=== PATIENT | female | born 1975 | race Caucasian/White ===

== ENCOUNTER → 2021-09-04 10:27 | Outpatient (BNVA) | payer BC, SELFPAY | PROVIDERS: PCP Physician Assistant Medical; Visit Provider Physician Assistant ==

== ENCOUNTER 2021-09-28 08:01 | Outpatient (REF) | payer BC, SELFPAY ==
--- NOTE | ~2021-09-28 | XR_ITS ---
EXAMINATION: XR CHEST CLINICAL INFORMATION: Morbid obesity due to excess calories COMPARISON: None TECHNIQUE: 2 views of the chest were obtained. FINDINGS: Lungs are clear. No focal consolidation or mass. Normal pulmonary vascularity. No pleural effusion or pneumothorax. Normal heart size. Mild degenerative changes of the thoracic spine. No acute osseous abnormality. XR/XR chest 2V IMPRESSION: No acute pulmonary disease.
--- NOTE | 2021-09-28 08:25 | ECG_ITS ---
Test Reason : obesity Blood Pressure : / mmHG Vent. Rate : 068 BPM Atrial Rate : 068 BPM P-R Int : 154 ms QRS Dur : 090 ms QT Int : 410 ms P-R-T Axes : 014 002 -05 degrees QTc Int : 435 ms Normal sinus rhythm Normal ECG No previous ECGs available Referred By: Gloria Sher Electronically Signed By:PIYUSH OLEARY MD
[2021-09-28 08:39] LABS: MANUAL DIFF FLAG NO
[2021-09-28 08:48] LABS: Basophils Percent Auto 0.5 % (0-2); Eosinophils Absolute Auto 0.1 X10*3/uL (0.0-0.4); Eosinophils Percent Auto 1.1 % (0-4); Hematocrit 39.8 % (37.0-47.0); Hemoglobin 12.7 g/dl (12.0-16.0); Imm Gran Abs Auto 0.02 X10*3/uL (0.00-0.03); Imm Gran Pct Auto 0.2 % (0.0-0.4); Lymphocytes Absolute Auto 1.8 X10*3/uL (1.2-4.9); Lymphocytes Percent Auto 21.8 % (20-40); Mean Corpuscular HGB Conc 31.9 g/dl (31.0-35.0); Mean Corpuscular Hemoglobin 27.9 pg (27.0-33.0); Mean Corpuscular Volume 87.3 fL (80.0-98.0); Mean Platelet Volume 10.1 fL (9.4-12.3); Monocytes Absolute Auto 0.5 X10*3/uL (0.1-1.2); Neutrophils Percent Auto 70.4 % (45-73); Platelet Count 341 X10*3/uL (160-400); Red Blood Count 4.56 X10*6/uL (4.20-5.50); Red Cell Distribution Width 13.9 % (11.0-16.0); White Blood Count 8.5 X10*3/uL (4.8-10.8)
[2021-09-28 09:13] LABS: Estimated Average Glucose 108 mg/dL; Hemoglobin A1c % 5.4 %
[2021-09-28 09:18] LABS: Alanine Aminotransferase 15 U/L (0-31); Albumin Level 4.2 g/dL (3.5-5.0); Alkaline Phosphatase 72 U/L (39-117); Anion Gap 13 (12-20); Aspartate Amino Transferase 14 U/L (5-31); Bilirubin Total 0.4 mg/dL (0.0-1.0); Blood Urea Nitrogen 16 mg/dL (9-16); C Reactive Protein 0.28 mg/dL (< or = 0.50); Calcium 9.6 mg/dL (8.4-10.2); Carbon Dioxide 27 mmol/L (22-29); Chloride 104 mmol/L (96-108); Cholesterol 184 mg/dL; Estimated Glomerular Filt Rate > 60; Glucose Random 99 mg/dL (60-115); HDL Cholesterol 46 mg/dL; Iron 55 mcg/dL (30-160); LDL Cholesterol Calculated 121 mg/dl; Percent Iron Saturation 13 % (15-50); Potassium 3.8 mmol/L (3.3-5.1); Sodium 140 mmol/L (135-145); Total Iron Binding Capacity 412 mcg/dL (228-428); Total Protein 7.7 g/dL (6.5-8.0); Triglycerides 86 mg/dL; Unsaturated Iron Binding 357 ug/dL
[2021-09-28 09:39] LABS: Ferritin 6 ng/mL (10-250); TSH reflex Free T4 1.66 uIU/mL (0.32-4.0); Vitamin D 25-OH Total 18.3 ng/mL (>30)
[2021-09-28 09:54] LABS: Vitamin B12 389 pg/mL (200-900)
[2021-09-28 10:10] LABS: Insulin 11 uU/mL (2-29)
[2021-09-29 15:56] LABS: Calcium (PTHI) 9.5 mg/dL (8.6-10.2); PTHI 61 pg/mL (14-64)
[2021-10-01 01:46] LABS: Zinc 86 mcg/dL (60-130)
[2021-10-02 12:06] LABS: Vitamin B1 <6 nmol/L (8-30)
[2021-10-06 13:25] LABS: Vitamin A 37 mcg/dL (38-98)
== END 2021-09-28 08:02 | disposition home or self-care (01) ==
LOC: HO.XRAY 08:01
PROVIDERS: Absent Provider Physician Assistant; PCP Physician Assistant Medical; Visit Provider Dietitian, Registered
DX: Z01.818 Encounter for other preprocedural examination (principal); E66.01 Morbid (severe) obesity due to excess calories; N20.0 Calculus of kidney; Z71.3 Dietary counseling and surveillance
CPT/HCPCS: 36415; 71046; 80053; 80061; 82306; 82607; 82728; 82746; 83036; 83525; 83540; 83970; 84425; 84443; 84590; 84630; 85025; 86140; 93005; 97802

== ENCOUNTER → 2021-10-12 13:23 | Outpatient (BNVA) | payer BC, SELFPAY | PROVIDERS: PCP Physician Assistant Medical; Visit Provider Physician Assistant ==

== ENCOUNTER 2021-10-20 08:21 | Outpatient (REF) | payer BC, SELFPAY ==
--- NOTE | ~2021-10-20 | US_ITS ---
EXAMINATION: US COMPLETE ABDOMEN WITH LIVER ELASTOGRAPHY CLINICAL INFORMATION: Obesity COMPARISON: None. TECHNIQUE: Real-time imaging of the abdominal viscera. Noninvasive ultrasound liver fibrosis assessment is performed using Yossi ElastPQ point quantification shear wave elastography (pSWE) with a C5-2 MHz transducer. Multiple elastography samples are obtained. FINDINGS: PANCREAS: Normal. ABDOMINAL AORTA: The proximal, middle, and distal aortic segments are normal in caliber. INFERIOR VENA CAVA: Visualized portions are normal. LIVER: Normal. The liver demonstrates normal size, contour and echogenicity. No focal lesion or intrahepatic biliary duct dilatation. The right lobe measures 17 cm in length. The left lobe measures 16 cm in length. Portal flow is normal/hepatopedal Shear wave liver elastography median stiffness is 1.7 m/s (reference: normal median stiffness is 1.3 m/s or less). IQR/median stiffness to assess sampling precision is 0.14 (reference: good quality data set is IQR/median stiffness of 0.15 or less). GALLBLADDER: Surgically removed COMMON BILE DUCT: Normal in caliber measuring 0.7 cm in diameter. RIGHT KIDNEY: Normal. No hydronephrosis. No renal calculi or focal parenchymal lesions. The kidney measures 13 cm in maximum dimension. LEFT KIDNEY: Normal. No hydronephrosis. No renal calculi or focal parenchymal lesions. The kidney measures 12.5 cm in maximum dimension. SPLEEN: Normal. The spleen measures 10 cm in maximum dimension. FREE FLUID: None. US/US abdomen comp w elastography IMPRESSION: 1. Impression: Normal abdominal ultrasound. 2. Liver elastography: Adequate liver sampling. Borderline elevated liver stiffness. REFERENCE: Society of Radiologists in Ultrasound Liver Stiffness Thresholds (2020): LIVER STIFFNESS THRESHOLDS: *Liver Stiffness equal or less than 1.3 m/s: High probability of being normal. *Liver Stiffness less than 1.7 m/s: In the absence of other known clinical signs, rules out compensated advanced chronic liver disease. *Liver Stiffness 1.7-2.1 m/s: Suggestive of compensated advanced chronic liver disease but need further test for confirmation. *Liver Stiffness over 2.1 m/s: Rules in compensated advanced chronic liver disease. *Liver Stiffness over 2.4 m/s: Suggestive of clinically significant portal hypertension. QUALITY OF DATA SET: *IQR/Median value equal or less than 0.15 implies a quality data set. *IQR/Median value over 0.15 implies a poor quality data set. SIGNIFICANT CHANGE FROM PRIOR EXAM: Significant change if liver stiffness measurement is 10% or greater from prior exam. OTHER CONSIDERATIONS: The stage of liver fibrosis may be overestimated in the setting of acute hepatitis, liver inflammation, elevated liver function tests, hepatic vascular congestion, obstructive cholestasis, non-fasting state, and infiltrative diseases such as amyloidosis and lymphoma. In some patients with NAFLD, the liver stiffness thresholds for compensated advanced chronic liver disease may be lower. In causes other than viral hepatitis and NAFLD, liver stiffness thresholds are not well established.
--- NOTE | ~2021-10-20 | FL_ITS ---
EXAMINATION: XR FLUOROSCOPY UPPER GI WITH AIR CLINICAL INFORMATION: Obesity. History of gastric sleeve procedure. COMPARISON: None TECHNIQUE: Upper GI was performed using thin and thick barium and effervescent granules. FINDINGS: Esophageal motility is normal. There is mild gastroesophageal reflux. There is a small sliding-type hiatal hernia. There is question of postsurgical changes to the proximal stomach, the gastric fundus, with slightly abnormal contour related to previous gastric sleeve procedure. The stomach is otherwise normal appearing. No mucosal irregularity, mass, stricture or ulcer is seen. FLUOROSCOPY TIME: 1.5 minutes. DOSE AREA PRODUCT: 21 malone per centimeter squared. 30 saved fluoroscopic images. FL/FL upper GI w air IMPRESSION: There is slight contour irregularity of the proximal stomach, question related to prior gastric sleeve procedure. The stomach is otherwise normal appearing. Small sliding hiatal hernia and mild gastroesophageal reflux.
== END 2021-10-20 08:22 | disposition home or self-care (01) ==
LOC: HO.US 08:21
PROVIDERS: Visit Provider Physician Assistant
DX: Z01.818 Encounter for other preprocedural examination (principal); E66.01 Morbid (severe) obesity due to excess calories; N20.0 Calculus of kidney
CPT/HCPCS: 74246; 76705; 76981

== ENCOUNTER 2021-10-22 10:53 | Outpatient (REF) | payer BC, SELFPAY ==
[2021-10-22 15:35] LABS: H Pylori Breath Test Negative (Negative)
== END 2021-10-22 10:54 | disposition home or self-care (01) ==
LOC: HO.LNP 10:53
PROVIDERS: PCP Physician Assistant Medical; Visit Provider Physician Assistant
DX: Z01.818 Encounter for other preprocedural examination (principal); E66.01 Morbid (severe) obesity due to excess calories; K44.9 Diaphragmatic hernia without obstruction or gangrene; K21.9 Gastro-esophageal reflux disease without esophagitis; I10 Essential (primary) hypertension; N20.0 Calculus of kidney
CPT/HCPCS: 83013

== ENCOUNTER → 2021-11-20 08:02 | Outpatient (BNVA) | payer BC, SELFPAY | PROVIDERS: PCP Physician Assistant Medical; Visit Provider Physician Assistant ==

== ENCOUNTER → 2021-12-18 08:14 | Outpatient (BNVA) | payer BC, SELFPAY | PROVIDERS: PCP Physician Assistant Medical; Visit Provider Physician Assistant ==

== ENCOUNTER → 2022-01-15 08:08 | Outpatient (BNVA) | payer BC, SELFPAY | PROVIDERS: PCP Physician Assistant Medical; Visit Provider Physician Assistant | DX: Z13.89 Encounter for screening for other disorder (principal) ==

== ENCOUNTER 2022-01-21 12:17 | Day surgery (SDC) | payer BC, SELFPAY ==
--- NOTE | 2022-01-20 10:26 | HO.ANESPROP2 ---
Documented by User: Raquel Huitron NP 01/20/22 10:38 HPI - Anesthesia Eval Consult details Narrative: 46yo F for Upper Endoscopy s/p gastric sleeve 2012 PENDING SALE TO [facility] Active Problems Active Problems: All Active Problems (Updated 10/22/21 @ 11:39 by Gloria Sher PA-C) History of sleeve gastrectomy (Acute) Hiatal hernia with gastroesophageal reflux (Acute) AZEB (generalized anxiety disorder) (Acute) Hx of migraines (Acute) GERD (gastroesophageal reflux disease) (Acute) Obstructive sleep apnea (Acute) HTN (hypertension) with goal to be determined (Acute) Pre-op evaluation (Acute) Morbid obesity (Acute) Past Medical History Medical History AZEB (generalized anxiety disorder) GERD (gastroesophageal reflux disease) HTN (hypertension) with goal to be determined Hx of migraines Renal stones Family History Family History Mother Breast cancer FH: mastectomy Hypertension Diabetes Father No problems noted. Brother No problems noted. Brother Heart disease Kidney stones Surgical History Surgical History History of sleeve gastrectomy History of total hysterectomy Hx of cholecystectomy Hx of endoscopy Hx of hand surgery Hx of laparoscopic gastric banding Hx of oral surgery Hx of wisdom tooth extraction Social History Social History Alcohol intake: current Alcohol intake frequency: holidays/special occasions only Patient Tobacco Use Status: Never used Tobacco Meds Allergies Allergy/AdvReac Type Severity Reaction Status Date / Time clindamycin Allergy Severe Anaphylaxis Verified 10/22/21 11:12 erythromycin base Allergy Severe Anaphylaxis Verified 10/22/21 11:12 Penicillins Allergy Severe Anaphylaxis Verified 10/22/21 11:12 Tetanus Vaccines and Toxoid Allergy Severe Anaphylaxis Verified 10/22/21 11:12 levofloxacin [From Levaquin] Allergy Anaphylaxis Verified 10/22/21 11:12 Home Medications Medication Instructions Recorded Confirmed Last Taken Type amlodipine 5 mg tablet 5 mg PO DAILY 09/04/21 01/15/22 Unknown History hydrochlorothiazide 25 mg tablet 25 mg PO DAILY 09/04/21 01/15/22 Unknown History lisinopril 20 mg tablet 20 mg PO DAILY 09/04/21 01/15/22 Unknown History lorazepam 0.5 mg tablet 0.5 mg PO DAILY PRN 09/04/21 01/15/22 Unknown History mecobalamin (vitamin B12) 5,000 5,000 mcg PO DAILY 09/04/21 01/15/22 Unknown History mcg lozenge naratriptan 1 mg tablet 1 mg PO Q4H PRN 09/04/21 01/15/22 Unknown History omeprazole 40 mg capsule,delayed 40 mg PO DAILY 09/04/21 01/15/22 Unknown History release vitamin B6-vitamin E-magnesium tab PO 09/04/21 01/15/22 Unknown History tablet vitamins B1 B6 B12 tablet tab PO 09/04/21 01/15/22 Unknown History Exam Exam Date and Time: January 20, 2022 1026 Pertinent Lab Results Pertinent Lab Results: Laboratory Tests 09/28/21 09/28/21 08:37 08:37 WBC 8.5 Hgb 12.7 Hct 39.8 Plt Count 341 Sodium 140 Potassium 3.8 Chloride 104 Carbon Dioxide 27 BUN 16 Creatinine 0.78 Narrative Narrative: EKG 09/2021 Vent. Rate : 068 BPM ? ? Atrial Rate : 068 BPM ?? P-R Int : 154 ms? QRS Dur : 090 ms ? ? QT Int : 410 ms ? ? ? P-R-T Axes : 014 002 -05 degrees ?? QTc Int : 435 ms ? Normal sinus rhythm Normal ECG No previous ECGs available Assessment and Plan Assessment Anesthesia Assessment: Chart Reviewed Documented by User: Adeel Yañez MD 01/21/22 16:41 PENDING SALE TO [facility] Past Medical History Medical History AZEB (generalized anxiety disorder) GERD (gastroesophageal reflux disease) HTN (hypertension) with goal to be determined Hx of migraines Renal stones Functional capacity: independent ambulation Family History Family History Mother Breast cancer FH: mastectomy Hypertension Diabetes Father No problems noted. Brother No problems noted. Brother Heart disease Kidney stones Family history of problems with anesthesia: No Surgical History Surgical History History of sleeve gastrectomy History of total hysterectomy Hx of cholecystectomy Hx of endoscopy Hx of hand surgery Hx of laparoscopic gastric banding Hx of oral surgery Hx of wisdom tooth extraction History of Problems with Anesthesia: No Social History Social History Alcohol intake: current Alcohol intake frequency: holidays/special occasions only Patient Tobacco Use Status: Never used Tobacco Meds Allergies Allergy/AdvReac Type Severity Reaction Status Date / Time clindamycin Allergy Severe Anaphylaxis Verified 10/22/21 11:12 erythromycin base Allergy Severe Anaphylaxis Verified 10/22/21 11:12 Penicillins Allergy Severe Anaphylaxis Verified 10/22/21 11:12 Tetanus Vaccines and Toxoid Allergy Severe Anaphylaxis Verified 10/22/21 11:12 levofloxacin [From Levaquin] Allergy Anaphylaxis Verified 10/22/21 11:12 Home Medications Medication Instructions Recorded Confirmed Last Taken Type amlodipine 5 mg tablet 5 mg PO DAILY 09/04/21 01/15/22 Unknown History hydrochlorothiazide 25 mg tablet 25 mg PO DAILY 09/04/21 01/15/22 Unknown History lisinopril 20 mg tablet 20 mg PO DAILY 09/04/21 01/15/22 Unknown History lorazepam 0.5 mg tablet 0.5 mg PO DAILY PRN 09/04/21 01/15/22 Unknown History mecobalamin (vitamin B12) 5,000 5,000 mcg PO DAILY 09/04/21 01/15/22 Unknown History mcg lozenge naratriptan 1 mg tablet 1 mg PO Q4H PRN 09/04/21 01/15/22 Unknown History omeprazole 40 mg capsule,delayed 40 mg PO DAILY 09/04/21 01/15/22 Unknown History release vitamin B6-vitamin E-magnesium tab PO 09/04/21 01/15/22 Unknown History tablet vitamins B1 B6 B12 tablet tab PO 09/04/21 01/15/22 Unknown History Exam Airway Mallampati Class: II TM Dist: >3cm Neck ROM: Full Loose/Missing/Broken Teeth: Yes (Crowns ) Heart: rrr Lungs: bl breath sounds Assessment and Plan Assessment Anesthesia Assessment: Anesthesia Plan Discussed Final Anesthetic Review Family History of Problems with Anesthesia: No History of Problems with Anesthesia: No NPO: Yes ASA Class: III Final Preanesthetic Review: Meds/Allgs Chart Reviewed, Consent Obtained/Reviewed and Anes Risks/Benef Reviewed Patient Risk: Intermediate Procedure Risk: Intermediate Anesthetic Plan Anesthetic Plan: MAC: Disposition: Standard PACU
--- NOTE | 2022-01-20 17:46 | MHC.SHP ---
Pre-Procedural Eval Section A Date of Service: 01/20/22 The patient is an INPATIENT: No The History & Physical has been completed within 30 days and I have reviewed it.: Yes Section B Chief Complaint: bariactric surgery status Relevant Family History (Specify if Yes): No Relevant Social History: None Present Medications: None Medical History: No relevant PMH History of Previous Operations: Relevant previous surgery/procedure and date(s) (Lap band and band revision to sleeve gastrectomy) Allergies: Allergies Allergy/AdvReac Type Severity Reaction Status Date / Time clindamycin Allergy Severe Anaphylaxis Verified 10/22/21 11:12 erythromycin base Allergy Severe Anaphylaxis Verified 10/22/21 11:12 Penicillins Allergy Severe Anaphylaxis Verified 10/22/21 11:12 Tetanus Vaccines and Toxoid Allergy Severe Anaphylaxis Verified 10/22/21 11:12 levofloxacin [From Levaquin] Allergy Anaphylaxis Verified 10/22/21 11:12 Review of Systems Sugical H&P ROS: Negative: Constitution, Cardiovascular, Respiratory, Neurological, Psychiatric, Hem-Onc, Allergic/Immunologic, Gastrointestinal, Genitourinary, Musculoskeletal, Integumentary, Endocrine and Eyes/Ears/Nose/Throat Plan Diagnosis/Plan: Unchanged (EGD to assess the anatomy of the stomach due to previous extensive surgical history and for GERD. Risks of bleeding and perforation were discussed.) I have reviewed the history and physical and performed a pertinent physical examination on my patient. No changes have occurred unless specified.
[2022-01-21 12:52] VITALS: BMI 43.6
[2022-01-21 13:10] VITALS: BP 126/80; PULSE 69; RESP 16; TEMP 37; O2SAT 98
[2022-01-21] MEDS: Lactated Ringers 1,000 ML 100 ML IVCONT (13:21)
--- NOTE | 2022-01-21 13:50 | PM.OP ---
Brief Operative Note Date of Service: 01/21/22 Pre-op diagnosis: GERD, s/p lap band and sleeve gastrectomy Post-op diagnosis: same Procedure: PROCEDURE DATE: 01/21/2022 PREOPERATIVE DIAGNOSIS: GERD, s/p sleeve gastrectomy POSTOPERATIVE DIAGNOSIS: ?Same as above. 1) small hiatal hernia, 2) grade I esophagitis, 3) retained gastric fundus PROCEDURE: [id number] with biopsies Surgeon: ?Eddie Knapp M.D.. Ph.D. Rental Sales Representative: None ? Anesthesia: IV sedation Estimated blood loss: ?Minimal FINDINGS AND PROCEDURE: ? OPERATIVE INDICATIONS: ?The patient is a 46 year old female known to me who underwent initially a lap band procedure followed by a revision to a laparoscopic sleeve gastrectomy at [facility]. The patient had inadequate weight loss so far..? The patient has been complaining of GERD. Based on this information I recommended an upper endoscopy to evaluate the patient's symptoms. Risks and complications of the surgery were discussed with the patient in advance particularly the possibility of perforation or bleeding that may require surgical intervention. The patient understood the risks and was in agreement with the plan. ? PROCEDURE: After informed consent was obtained by the patient, the patient was ?transferred to the Operating Room and was placed in the supine position.? After successful induction of IV sedation, a mouth block was inserted and the patient was placed in the left lateral decubitus position. An upper endoscopy was performed next, the oropharynx and esophagus appeared within the normal limits. There was a small hiatal hernia. The z-line was irregular with tongues of gastric mucosa protruding into the esophagus in less than 25% circumference.. Two biopsies were obtained from the distal esohagus 2-3 cm proximal to the GE junction and two additional biopsies from the GE junction. The sleeve was entered. There proximal fundus was not completely resected creating a redundant pouch near the GE junction. There was no gastritis.. There was no stricture or ulcer. The caliber of the remaining sleeve was normal. Distal resection margin was incomplete leaving a large antrum. Biopsies were obtained from the proximal sleeve as well as the distal antrum. No significant bleeding was noted from any of the biopsy sites. The scope was then advanced into the duodenum which appeared to be normal as well. At that point the duodenum ?and the sleeve were decompressed and the scope was withdrawn from the patient's mouth. The patient extubated and was transferred in stable condition to the Recovery Room for further care. I was present and performed all steps of the procedure. There were no residents to assist with this case. Eddie Knapp M.D., Ph.D. Surgeon: Ervin Knapp MD Anesthesia: MAC Was an Rental Sales Representative used for this Procedure?: No Estimated blood loss (mL): 0 IV fluids (mL): 400 Urine output (mL): 0 (No Kahn to record) Pathology: other (GE junction x2, distal esophagus x2, proximal sleeve x1, antrum x1) Condition: stable Disposition: PACU
[2022-01-21 14:17] VITALS: BP 120/72; PULSE 77; RESP 16; TEMP 36.2; O2SAT 96
[2022-01-21 14:32] VITALS: BP 121/81; PULSE 67; RESP 18; TEMP 36.7; O2SAT 98
== END 2022-01-21 15:09 | disposition home or self-care (01) ==
PROVIDERS: PCP Physician Assistant Medical; Visit Provider Surgery
PROC: 0DJ08ZZ Inspection of Upper Intestinal Tract, Via Natural or Artificial Opening Endoscopic (ICD-10-PCS; CPT 43235; principal; 2022-01-21 13:20)
DX: K21.9 Gastro-esophageal reflux disease without esophagitis (principal); K20.80 Other esophagitis without bleeding; K44.9 Diaphragmatic hernia without obstruction or gangrene; K31.89 Other diseases of stomach and duodenum; Z98.84 Bariatric surgery status; Z90.3 Acquired absence of stomach [part of]; E66.01 Morbid (severe) obesity due to excess calories; Z68.41 Body mass index [BMI] 40.0-44.9, adult; I10 Essential (primary) hypertension; F41.1 Generalized anxiety disorder; Z79.899 Other long term (current) drug therapy; Z88.0 Allergy status to penicillin; Z88.1 Allergy status to other antibiotic agents; Z88.7 Allergy status to serum and vaccine; Z90.49 Acquired absence of other specified parts of digestive tract; Z87.442 Personal history of urinary calculi; Z98.890 Other specified postprocedural states; Z86.16 Personal history of COVID-19; Z87.891 Personal history of nicotine dependence
CPT/HCPCS: 43239; 88305; 88342

== ENCOUNTER → 2022-01-29 08:06 | Outpatient (BNVA) | payer BC, SELFPAY | PROVIDERS: PCP Physician Assistant Medical; Visit Provider Physician Assistant | DX: Z13.89 Encounter for screening for other disorder (principal) ==

== ENCOUNTER → 2022-02-22 09:04 | Outpatient (BNVA) | payer BC, SELFPAY | PROVIDERS: PCP Physician Assistant Medical; Visit Provider Surgery | DX: Z13.89 Encounter for screening for other disorder (principal) ==

== ENCOUNTER → 2022-03-01 09:30 | Outpatient (BNVA) | payer BC, SELFPAY | PROVIDERS: PCP Physician Assistant Medical; Visit Provider Surgery | DX: E66.01 Morbid (severe) obesity due to excess calories (principal) ==

== ENCOUNTER → 2022-03-19 08:16 | Outpatient (BNVA) | payer BC, SELFPAY | PROVIDERS: PCP Physician Assistant Medical; Visit Provider Surgery | DX: Z13.89 Encounter for screening for other disorder (principal) ==

== ENCOUNTER 2022-03-24 08:05 | Inpatient (IN) | payer BC, SELFPAY ==
[2022-03-20 10:15] LABS: MANUAL DIFF FLAG NO
[2022-03-20 10:49] LABS: Basophils Percent Auto 0.4 % (0-2); Eosinophils Absolute Auto 0.1 X10*3/uL (0.0-0.4); Hematocrit 40.5 % (37.0-47.0); Hemoglobin 13.4 g/dl (12.0-16.0); Imm Gran Abs Auto 0.03 X10*3/uL (0.00-0.03); Imm Gran Pct Auto 0.4 % (0.0-0.4); Mean Corpuscular HGB Conc 33.1 g/dl (31.0-35.0); Mean Corpuscular Hemoglobin 29.1 pg (27.0-33.0); Mean Corpuscular Volume 87.9 fL (80.0-98.0); Mean Platelet Volume 10.4 fL (9.4-12.3); Monocytes Absolute Auto 0.5 X10*3/uL (0.1-1.2); Monocytes Percent Auto 6.2 % (2-11); Neutrophils Absolute Auto 5.7 x10*3/uL (2.0-8.3); Platelet Count 327 X10*3/uL (160-400); Red Blood Count 4.61 X10*6/uL (4.20-5.50); White Blood Count 8.4 X10*3/uL (4.8-10.8)
[2022-03-20 10:56] LABS: Estimated Average Glucose 105 mg/dL; Hemoglobin A1c % 5.3 %
[2022-03-20 10:59] LABS: Prothrombin Time 11.9 SEC (9.9-13.0)
[2022-03-20 11:01] LABS: Partial Thromboplastin Time 32.5 SEC (24.1-38.0)
[2022-03-20 11:26] LABS: Alanine Aminotransferase 12 U/L (0-31); Albumin Level 4.1 g/dL (3.5-5.0); Alkaline Phosphatase 77 U/L (39-117); Anion Gap 17 (12-20); Aspartate Amino Transferase 12 U/L (5-31); Bilirubin Total 0.8 mg/dL (0.0-1.0); Blood Urea Nitrogen 15 mg/dL (9-16); Calcium 9.7 mg/dL (8.4-10.2); Carbon Dioxide 26 mmol/L (22-29); Chloride 102 mmol/L (96-108); Cholesterol 217 mg/dL; Estimated Glomerular Filt Rate > 60; Glucose Random 93 mg/dL (60-115); HDL Cholesterol 51 mg/dL; LDL Cholesterol Calculated 151 mg/dl; Potassium 4.7 mmol/L (3.3-5.1); Sodium 140 mmol/L (135-145); Total Protein 7.5 g/dL (6.5-8.0); Triglycerides 76 mg/dL
[2022-03-20 11:48] LABS: Insulin 13 uU/mL (2-29); TSH reflex Free T4 1.74 uIU/mL (0.32-4.0)
--- NOTE | 2022-03-20 13:29 | MHC.SHP ---
Pre-Procedural Eval Section A Date of Service: 03/20/22 The patient is an INPATIENT: Yes The History & Physical has been completed within 30 days and I have reviewed it.: Yes Section B Chief Complaint: obesity Relevant Family History (Specify if Yes): No Relevant Social History: None Present Medications: None Medical History: No relevant PMH History of Previous Operations: Relevant previous surgery/procedure and date(s) (Lap band, sleeve gastrectomy) Allergies: Allergies Allergy/AdvReac Type Severity Reaction Status Date / Time clindamycin Allergy Severe Anaphylaxis Verified 03/01/22 10:39 erythromycin base Allergy Severe Anaphylaxis Verified 03/01/22 10:39 Penicillins Allergy Severe Anaphylaxis Verified 03/01/22 10:39 Tetanus Vaccines and Toxoid Allergy Severe Anaphylaxis Verified 03/01/22 10:39 levofloxacin [From Levaquin] Allergy Anaphylaxis Verified 03/01/22 10:39 Review of Systems Sugical H&P ROS: Negative: Constitution, Cardiovascular, Respiratory, Neurological, Psychiatric, Hem-Onc, Allergic/Immunologic, Gastrointestinal, Genitourinary, Musculoskeletal, Integumentary, Endocrine and Eyes/Ears/Nose/Throat Exam Surgical H&P Exam: Normal: HEENT, Normal: Heart, Normal: Lungs, Normal: Extremities, Normal: Abdomen, Normal: Skin and Normal: Neurological Plan Diagnosis/Plan: Unchanged I have reviewed the history and physical and performed a pertinent physical examination on my patient. No changes have occurred unless specified.
[2022-03-22 11:34] VITALS: BMI 41.1
--- NOTE | 2022-03-23 10:26 | P.CONAN_ITS ---
Documented by User: Raquel Huitron NP 03/23/22 10:27 HPI - Anesthesia Eval Consult details Narrative: 46yo F for Gastric Sleeve to Gastric Sleeve or Bypass Conversion,EGD,Poss diaphragmatic hernia,Poss ventral hernia,Poss open s/p EGD 01/2022 with TIVA PMFSH Active Problems Active Problems: All Active Problems (Updated 03/01/22 @ 10:14 by Ervin Knapp MD) Morbid obesity (Acute) Pre-op evaluation (Acute) Obstructive sleep apnea (Acute) Hiatal hernia with gastroesophageal reflux (Acute) Iron deficiency (Acute) History of sleeve gastrectomy (Acute) Past Medical History Medical History AZEB (generalized anxiety disorder) GERD (gastroesophageal reflux disease) HTN (hypertension) with goal to be determined Hx of migraines Renal stones Family History Family History Mother Breast cancer FH: mastectomy Hypertension Diabetes Father No problems noted. Brother No problems noted. Brother Heart disease Kidney stones Family history of problems with anesthesia: No Surgical History Surgical History History of partial hysterectomy History of sleeve gastrectomy Hx of cholecystectomy Hx of endoscopy Hx of hand surgery Hx of laparoscopic gastric banding Hx of oral surgery Hx of wisdom tooth extraction History of Problems with Anesthesia: No Social History Social History Are you a primary anesthesiologist and critical care to a significant other at home: Yes Do you presently have visiting nurse or other home services: No Alcohol intake: current Alcohol intake frequency: does not drink Patient Tobacco Use Status: Former Tobacco user Quit Date: 1999 Tobacco use type: Cigarette Use of substances other than those prescribed or required for medical reasons: No Have you been hit, kicked, punched, or otherwise hurt by someone within the past year? If so, by whom?: No Are you DNR?: No Advance Directives: No Advance Directives Information Provided: Yes Advance Directives on File: No Recently lost weight without trying: No Patient : No (partial hysterectomy 2019) Meds Allergies Allergy/AdvReac Type Severity Reaction Status Date / Time erythromycin base Allergy Severe Vomiting Verified 03/24/22 08:15 levofloxacin [From Levaquin] Allergy Severe Hives Verified 03/24/22 08:15 Penicillins Allergy Severe Hives Verified 03/24/22 08:15 Tetanus Vaccines and Toxoid Allergy Severe Swelling Verified 03/24/22 08:15 at site, [facility] Home Medications Medication Instructions Recorded Confirmed Last Taken Type amlodipine 5 mg tablet 5 mg PO DAILY 09/04/21 03/22/22 03/24/22 06:30 History hydrochlorothiazide 25 mg tablet 25 mg PO DAILY 09/04/21 03/22/22 Unknown History lisinopril 20 mg tablet 20 mg PO DAILY 09/04/21 03/22/22 03/24/22 06:30 History mecobalamin (vitamin B12) 5,000 5,000 mcg PO DAILY 09/04/21 03/19/22 Unknown History mcg lozenge naratriptan 1 mg tablet 1 mg PO Q4H PRN 09/04/21 03/19/22 Unknown History omeprazole 40 mg capsule,delayed 40 mg PO DAILY 09/04/21 03/22/22 Unknown History release vitamin B6-vitamin E-magnesium tab PO 09/04/21 03/19/22 Unknown History tablet vitamins B1 B6 B12 tablet tab PO 09/04/21 03/19/22 Unknown History Exam Exam Date and Time: March 23, 2022 1026 Height,Weight and Vital Signs: Height 5 ft 5.5 in Weight 113.852 kg Pertinent Lab Results Pertinent Lab Results: Laboratory Tests 03/20/22 03/20/22 03/20/22 10:10 10:10 10:10 WBC 8.4 RBC 4.61 Hgb 13.4 Hct 40.5 MCV 87.9 MCH 29.1 MCHC 33.1 RDW 14.0 Plt Count 327 MPV 10.4 Immature Gran % (Auto) 0.4 Neut % (Auto) 68.0 Lymph % (Auto) 24.0 Ida % (Auto) 6.2 Eos % (Auto) 1.0 Baso % (Auto) 0.4 Lymph # (Auto) 2.0 Ida # (Auto) 0.5 Eos # (Auto) 0.1 Baso # (Auto) 0.0 Abs Immat Gran (auto) 0.03 Absolute Neuts (auto) 5.7 Absolute Nucleated RBC 0.000 Nucleated RBC % (auto) 0.0 PT 11.9 INR 1.0 APTT 32.5 Sodium 140 Potassium 4.7 D Chloride 102 Carbon Dioxide 26 Anion Gap 17 BUN 15 Creatinine 0.80 Estim Creat Clear Calc TNP Estimated GFR > 60 Random Glucose 93 Estimat Average Glucose Hemoglobin A1c % Insulin Level 13 Calcium 9.7 Total Bilirubin 0.8 AST 12 ALT 12 Alkaline Phosphatase 77 C-Reactive Protein 0.20 Total Protein 7.5 Albumin 4.1 Triglycerides 76 Cholesterol 217 LDL Cholesterol, Calc 151 HDL Cholesterol 51 TSH 1.74 Blood Type Antibody Screen 03/20/22 03/20/22 10:10 10:10 WBC RBC Hgb Hct MCV MCH MCHC RDW Plt Count MPV Immature Gran % (Auto) Neut % (Auto) Lymph % (Auto) Ida % (Auto) Eos % (Auto) Baso % (Auto) Lymph # (Auto) Ida # (Auto) Eos # (Auto) Baso # (Auto) Abs Immat Gran (auto) Absolute Neuts (auto) Absolute Nucleated RBC Nucleated RBC % (auto) PT INR APTT Sodium Potassium Chloride Carbon Dioxide Anion Gap BUN Creatinine Estim Creat Clear Calc Estimated GFR Random Glucose Estimat Average Glucose 105 Hemoglobin A1c % 5.3 Insulin Level Calcium Total Bilirubin AST ALT Alkaline Phosphatase C-Reactive Protein Total Protein Albumin Triglycerides Cholesterol LDL Cholesterol, Calc HDL Cholesterol TSH Blood Type AB Positive Antibody Screen NEGATIVE Narrative Narrative: EKG 09/2021 Vent. Rate : 068 BPM ? ? Atrial Rate : 068 BPM ?? P-R Int : 154 ms? QRS Dur : 090 ms ? ? QT Int : 410 ms ? ? ? P-R-T Axes : 014 002 -05 degrees ?? QTc Int : 435 ms ? Normal sinus rhythm Normal ECG No previous ECGs available Assessment and Plan Assessment Anesthesia Assessment: Chart Reviewed Final Anesthetic Review Family History of Problems with Anesthesia: No History of Problems with Anesthesia: No Documented by User: Herbert Ansari MD 03/24/22 08:56 [facility] Past Medical History Medical History AZEB (generalized anxiety disorder) GERD (gastroesophageal reflux disease) HTN (hypertension) with goal to be determined Hx of migraines Renal stones Family History Family History Mother Breast cancer FH: mastectomy Hypertension Diabetes Father No problems noted. Brother No problems noted. Brother Heart disease Kidney stones Surgical History Surgical History History of partial hysterectomy History of sleeve gastrectomy Hx of cholecystectomy Hx of endoscopy Hx of hand surgery Hx of laparoscopic gastric banding Hx of oral surgery Hx of wisdom tooth extraction Social History Social History Are you a primary anesthesiologist and critical care to a significant other at home: Yes Do you presently have visiting nurse or other home services: No Alcohol intake: current Alcohol intake frequency: does not drink Patient Tobacco Use Status: Former Tobacco user Quit Date: 1999 Tobacco use type: Cigarette Use of substances other than those prescribed or required for medical reasons: No Have you been hit, kicked, punched, or otherwise hurt by someone within the past year? If so, by whom?: No Are you DNR?: No Advance Directives: No Advance Directives Information Provided: Yes Advance Directives on File: No Recently lost weight without trying: No Patient : No (partial hysterectomy 2019) Meds Allergies Allergy/AdvReac Type Severity Reaction Status Date / Time erythromycin base Allergy Severe Vomiting Verified 03/24/22 08:15 levofloxacin [From Levaquin] Allergy Severe Hives Verified 03/24/22 08:15 Penicillins Allergy Severe Hives Verified 03/24/22 08:15 Tetanus Vaccines and Toxoid Allergy Severe Swelling Verified 03/24/22 08:15 at site, [facility] Home Medications Medication Instructions Recorded Confirmed Last Taken Type amlodipine 5 mg tablet 5 mg PO DAILY 09/04/21 03/22/22 03/24/22 06:30 History hydrochlorothiazide 25 mg tablet 25 mg PO DAILY 09/04/21 03/22/22 Unknown History lisinopril 20 mg tablet 20 mg PO DAILY 09/04/21 03/22/22 03/24/22 06:30 History mecobalamin (vitamin B12) 5,000 5,000 mcg PO DAILY 09/04/21 03/19/22 Unknown History mcg lozenge naratriptan 1 mg tablet 1 mg PO Q4H PRN 09/04/21 03/19/22 Unknown History omeprazole 40 mg capsule,delayed 40 mg PO DAILY 09/04/21 03/22/22 Unknown History release vitamin B6-vitamin E-magnesium tab PO 09/04/21 03/19/22 Unknown History tablet vitamins B1 B6 B12 tablet tab PO 09/04/21 03/19/22 Unknown History Exam Airway Mallampati Class: III TM Dist: >3cm Neck ROM: Full Assessment and Plan Assessment Anesthesia Assessment: Anesthesia Plan Discussed Final Anesthetic Review NPO: Yes ASA Class: III Final Preanesthetic Review: No Changes in Pt Med Stat, Meds/Allgs Chart Reviewed, Consent Obtained/Reviewed and Anes Risks/Benef Reviewed Patient Risk: Intermediate Procedure Risk: Intermediate Anesthetic Plan Anesthetic Plan: GA Disposition: Inp. Admit - Standard Bed
[2022-03-23 14:02] LABS: COVID-19 Test Negative (Negative)
[2022-03-24] VITALS (12 sets, daily range): BP systolic 105–138; BP diastolic 68–92; PULSE 75–99; RESP 15–18; TEMP 35.9–36.9; O2SAT 95–100
[2022-03-24] MEDS: Lactated Ringers 1,000 ML 999 ML IV (08:39)
[2022-03-24] MEDS: Lactated Ringers 1,000 ML 100 ML IVCONT (08:40)
--- NOTE | 2022-03-24 11:25 | PM.OP ---
Brief Operative Note Date of Service: 03/24/22 Pre-op diagnosis: Morbid obesity and comorbidities (see below) Post-op diagnosis: same (diaphragmatic hernia & abdominal adhesions) Procedure: INITIAL PATIENT BMI ON PRESENTATION AT OUR OFFICE: 49.9 kg/m2 LAST BMI BEFORE SURGERY: 42.8 kg/m2 COMORBIDITIES: Sleep apnea on CPAP, hypertension, GERD, diaphragmatic hernia, anxiety, migraines, liver fibrosis ?The patient presented to the Weight Management Program with significant obesity that was negatively impacting the patient's comorbidities as listed above.? The program is a phased program with a special focus on preoperative medical weight management to promote substantial weight loss and prepare the patients for the second phase of the program: bariatric surgery. The patient participated in an intensive weekly lifestyle ?intervention and exercise program during which the patient ?has lost between the initial office visit and the last preoperative visit 47.8lbs, or 15.68% of initial actual body weight. It was deemed appropriate for the patient to now have bariatric surgery. In light of the current Covid-19 pandemic and the well documented strong association of obesity and increased risk of worse outcomes if infected with Covid-19 (REFERENCES:https://pubmed.ncbi.nlm.nih.gov/63763281/,?https://pubmed.ncbi.nlm.nih.gov/90694283/), any delay in undergoing bariatric surgery may lead to the patient's worsening health condition and increased?risk of more severe Covid-19 disease if infected. In addition a recent?study from [facility] published in [employer] on 10/12/2021 ([email or web address]) found that, among patients with obesity, substantial weight loss achieved with surgery was associated with improved outcomes of COVID-19 infection. The findings suggest that obesity can be a modifiable risk factor for the severity of COVID-19 infection. In addition, the patient met the BMI-criteria for bariatric surgery based on the BMI on initial presentation. The patient should not be penalized for achieving such weight loss because ?it is not sustainable long-term without surgical intervention and it was achieved in preparation for bariatric surgery ?under my direction and based on my published research ([email or web address] and?[email or web address].soard.org/[email or web address]/pdf) ?that a 10% preoperative weight loss improves long-term weight loss after surgery and reduces perioperative complications.? Insurance carriers such as [facility] have endorsed my recommendations ?and have included in their policies criteria to include a 10% preoperative weight loss requirement. PROCEDURE: Esophago-gastroscopy, laparoscopic repair of incarcerated diaphragmatic hernia, laparoscopic lysis of adhesions, laparoscopic sleeve gastrectomy and laparoscopic gastropexy INDICATIONS: This is a 46 year-old female who was electively scheduled for laparoscopic, possibly open sleeve gastrectomy revision. The patient has a previous lap band in 2009, followed by a revision to sleeve gastrectomy, both of which were performed by Dr. Cunningham. Preoperative work-up including an UGI and EGD is suggestive of a large proximal pouch of retained gastric fundus as well as incomplete distal antral resection. The objective of this operation is to redo the sleeve, or as an alternative to revise to Tasha-en-Y gastric bypass. The risks and complications of the procedure were discussed with the patient in advance, particularly the possibility of ; pulmonary embolism; staple line leak; bleeding; GERD; cardiac, pulmonary, or renal complications; as well as long-term problems such as insufficient weight loss, vitamin deficiency, strictures, or ulcers. The patient understood all the risks, and was in agreement to proceed with surgery. DESCRIPTION OF PROCEDURE: After informed consent was obtained from the patient, the patient was given preoperative antibiotics, and was transferred to the operating room. After successful induction of general anesthesia, a Kahn cather and pneumatic compression devices were placed on both lower extremities. An upper endoscopy was performed next. The oropharynx and esophagus appeared to be within normal limits. There was a diaphragmatic hernia present of moderate size consistent with the findings of the preoperative upper GI. The stomach was entered. Then after all fluid and air were suctioned and the stomach was fully decompressed, the scope was withdrawn and secured in the mid esophagus. The patient was then prepped and draped in the usual sterile manner, and abdominal access was established at the right upper quadrant with the Tunde technique. A 12 mm blunt port was inserted, and the abdomen was insufflated with CO2 to a pressure of 15 mmHg. Under direct visualization, additional ports were placed, specifically two 5 mm Versi-step ports to the left upper quadrant, and a 5 mm Versi-Step port to the right upper quadrant. 1% lidocaine plain was used to infiltrate all port sites as well as all fascia defects. There were adhesions in the abdomen from previous gastric band and sleeve gastrectomy involving the left lobe of the liver and the anterior surface of the stomach.. Those were lysed completely with the ultrasonic device. Following that, the patient was placed in a steep reverse Trendelenburg position. An additional 5 mm port was placed to the right flank for the Mediflex retractor that was used to retract the left lobe of the liver. The gastro-esophageal fat pad was opened with the ultrasonic device (SnapShot GmbHerbeat, Olympus) and the anterior esophagus and hiatus were exposed. The angle of His was opened with the ultrasonic device the fundus of the stomach from any diaphragmatic and splenic attachments. I then opened the gastrocolic ligament between the transverse colon and the greater curvature of the stomach with the ultrasonic device to enter the lesser sac. This was very difficult as there were dense adhesions from previous sleeve gastrectomy. The posterior gastric wall was attached to the pancreas and extensive and tedious dissection was required to free the stomach. The dissection continued all the way to the angle of His until the left jewels was completely dissected at its entirety. The previous surgeon did not dissect adequately posterior leaving short gastric vessels? which resulted in a much larger proximal stomach which was confirmed by preoperative UGI and EGD. These posterior short gastric vessels were ligated as well as other posterior attachments that were not divided originally. This allowed us to mobilize the stomach completely and appreciate the amount of stomach that was inappropriately left unresected at the original operation.? In addition the remaining sleeve all the way to the incisura angularis was enlarged. Adhesiolysis took approximately 120 min to complete with a total operative time of 4 hours. There was also an obvious significant-sized hiatal hernia. I continued dissecting along the hiatus toward the left jewels and the angle of His. I fully mobilized the fat pad that was incarcerated in the hernia. I then continued by dissecting even further into the posterior retro-esophageal space all the way to the angle of His. I continued to mobilize the esophagus into the mediastinum circumferentially. Both vagal nerves were seen and preserved. At that point, I was able to have at least 3 to 5 cm of esophagus into the abdomen.? After I completely mobilized the esophagus from both the left and right jewels and I had a good mobilization of the esophagus circumferentially, I closed the hernia defect with two interrupted #0 Surgidac sutures using the Endo Stitch device, one of which was placed posterior and one of which anterior to the esophagus. ? The redundant stomach was then resected from the incisura angularis to the angle of His with seven Endo CODIE-45 purple loads using the AEON stapler and loads under direct endoscopic visualization before each of the seven staple loads were fired. This was quite cumbersome and the assistance of Dr. Murillo was requested who was kind enough to perform the intraoperative endoscopy while I was resecting the stomach to ensure proper resection without causing further redundancy or stenosis. Every effort was made that the gastric sleeve had a tubular shape and an even caliber throughout. Once the sleeve resection was completed, the staple line of the gastric sleeve was reinforced with Hemoclips. The resected stomach was retrieved without difficulty from the Tunde port. A gastropexy was then performed in order to prevent postoperative GERD and partial gastric volvulus. Several interrupted 2.0 Surgidac sutures were placed between the sleeve's staple line and the previously divided greater omentum and gastro-colic ligament using the Endo-Stitch device. ?An upper endoscopy was performed. There was no narrowing at the GE junction. The scope was easily advanced all the way to the pylorus which was clearly visualized. There was no narrowing anywhere and the sleeve's caliber was even throughout. The sleeve's staple line was inspected and there was no evidence of ischemia, bleeding or dehiscence. At that point the gastroscope was withdrawn from the patient?s mouth while we were decompressing the bowel and the stomach from any remaining air. I looked into the lesser sac to see how the sleeve was situating and it was situating well. There was no bleeding from the staple line, spleen, or short gastric vessels. The Mediflex retractor was removed, and the undersurface of the liver was inspected and there was no bleeding. The patient was placed in supine position. I closed the fascial defect of the 12 mm port site with a figure of eight #1 Polysorb suture. Then 100 cc 0.25 % Marcaine plain with 10 mg of Dexamethasone were used to infiltrate the fascial closure as well as all skin incisions. 7 ml of Zynrelef was used at the Tunde port site. At this point, the abdomen was deflated, all ports were removed under direct vision, and no bleeding was noted from any of the port sites. The skin incisions were irrigated with saline and were closed with 4-0 absorbable monofilament sutures. Steri-Strips and OpSites were used to cover all incisions. The patient was extubated and was transferred in stable condition to the recovery room for further care. I was present and performed all mena parts of the procedure. Ms. Sher was the first aid teacher. There were no residents to assist with this case. Eddie Knapp MD, PhD, FACS Surgeon: Ervin Knapp MD Anesthesia: GETA, local and other (TAP block & 7ml of Zynrelef) Was an Jordan Worker used for this Procedure?: Yes Jordan Worker: Gloria Sher Estimated blood loss (mL): 10 IV fluids (mL): 3,800 Urine output (mL): 150 Pathology: other Condition: stable Disposition: PACU
--- NOTE | 2022-03-24 11:29 | PM.PNGS ---
Subjective Subjective Date of Service: 03/25/22 Interval history: Patient has mild incisional pain, but was able to ambulate and use the incentive spirometer. She is tolerating phase 1 bariatric diet Physical Exam Vital Signs: Vital Signs: Last Vital Signs Temp 97.8 F 03/24/22 08:16 Pulse 75 03/24/22 08:16 Resp 15 03/24/22 08:16 BP 128/77 03/24/22 08:16 Pulse Ox 96 03/24/22 08:16 O2 Del Method 03/24/22 08:16 BMI result Body Mass Index 41.1 GI: Inspection: Yes normal to inspection, Yes incision (clean, dry and intact) and Yes obesity Extrem: Right lower extremity: normal to inspection (no calf tenderness) Left lower extremity: normal to inspection (no calf tenderness) Objective Data Active Medications Fentanyl (Fentanyl Citrate/Pf 100 Mcg/2 Ml Vial) 50 mcg IVPUSH Q5M PRN; Protocol PRN Reason: Pain, Severe (Pain Scale 7-10) Lactated Ringer's (Lr) 1,000 mls @ 100 mls/hr IVCONT .Q10H MARYSOL Last Admin: 03/24/22 08:40 Dose: 100 mls/hr Documented By: ANTHONY Ondansetron HCl (Ondansetron Hcl 4 Mg/2 Ml Vial) 4 mg IVPUSH ONCE PRN PRN Reason: Nausea and Vomiting Oxycodone HCl (Oxycodone Hcl Immed Release 5 Mg Tablet) 10 mg PO ONCE PRN PRN Reason: Pain, Severe (Pain Scale 7-10) Labs CBC & Chem 7: 03/25/22 06:00 03/25/22 06:00 Labs: Laboratory Results - last 24 hr 03/23/22 13:20 COVID-19 (ELIER) Negative COVID-19 Clin Com See Note Procedures Date of Service Date of Service: 03/25/22 Progress Note: A&P Assessment and plan (1) Morbid obesity: Status: Acute Assessment and Plan: s/p laparoscopic sleeve gastrectomy, lysis of adhesions repair of diaphragmatic hernia, and gastropexy Doing well Check am labs. If OK, will discharge home? (2) Hiatal hernia with gastroesophageal reflux: Status: Acute (3) History of sleeve gastrectomy: Status: Acute (4) Obstructive sleep apnea: Status: Acute (5) HTN (hypertension) with goal to be determined: Status: Acute (6) Liver fibrosis: Status: Acute (7) AZEB (generalized anxiety disorder): Status: Acute (8) Hx of migraines: Status: Acute (9) S/P laparoscopic sleeve gastrectomy: Status: Acute (10) History of repair of hiatal hernia: Status: Acute Time Spent With Patient Time: Total time spent is greater than 50% in coordination of care (as documented) at patient's floor/unit and/or counseling patient: Quality Stroke Does the patient have a stroke diagnosis?: No VTE Prior VTE?: No VTE Risk Level:: Surgical - moderate VTE Device Contraindication: N/A - Device Ordered VTE Drug Contraindication: Treatment Not Indicated
--- NOTE | 2022-03-24 16:19 | W.PM.OPN ---
Operative Note Operative Note Date of Service: 03/24/22 Narrative: Preop diagnosis: failed sleeve gastrectomy, planned revision Postop diagnosis: same Procedure: Intraoperative esophagogastrostomy Surgeon: Germán Murillo MD Requested by Ervin Knapp MD Anesthesia: GET Estimated blood loss: None Specimen: none Intraoperative findings: Viable gastric mucosa, appropriate caliber revision sleeve gastrectomy and intraoperative hiatal hernia repair; see Dr. Knapp' operative report for full details Indications: The patient is a 46-year-old woman who is status post lap band with subsequent removal and sleeve gastrectomy at an outside hospital who developed a hiatal hernia and failed sleeve gastrectomy as evidence by weight gain. Dr. Knapp requested I assist intraoperatively by performing intraoperative upper endoscopy as part of the patient's revision sleeve gastrectomy which would allow concomitant endoscopic visualization of the revision sleeve gastrectomy diameter during the laparoscopic procedure, it is morphology and confirm efficacy of the procedure including hiatal hernia repair. Please see Dr. Knapp' op note for additional details. Procedure: The patient was identified and an appropriate time-out performed. Following induction of general endotracheal anesthesia, a Kahn catheter was placed, her abdomen widely prepped and draped and antibiotics administered per protocol. Her operative procedure was performed by Dr. Knapp; please see his separate dictation for details of his report. During his laparoscopy, I was asked to assist by performing esophagogastroscopy while he performed laparoscopy gastric sleeve revision and hiatal hernia repair. The Olympus 160 gastroscope was advanced from the esophagus under direct vision into the stomach to the pylorus. Intra procedure photographs are obtained. Under the direction of Dr. Knapp, the scope was advanced and withdrawn to facilitate revision sleeve gastrectomy and hiatal hernia repair. At the completion of the procedure, the scope was used to aspirate the air and withdrawn from the patient. The patient tolerated the procedure well.
[2022-03-24] MEDS: Metoclopramide HCl 10 MG/2 ML VIAL IVPUSH (16:26)
--- NOTE | 2022-03-24 16:26 | PM.DS ---
DS: Providers Provider Date of Service: 03/25/22 Date of admission: 03/24/22 08:05 Primary care physician: Sarina Martínez PA-C DS: Diagnosis Discharge Diagnosis (1) Morbid obesity: Status: Acute (2) Hiatal hernia with gastroesophageal reflux: Status: Acute (3) History of sleeve gastrectomy: Status: Acute (4) Obstructive sleep apnea: Status: Acute (5) HTN (hypertension) with goal to be determined: Status: Acute (6) Liver fibrosis: Status: Acute (7) AZEB (generalized anxiety disorder): Status: Acute (8) Hx of migraines: Status: Acute DS: Summary Hospital Course Hospital Course: ADMITTING DIAGNOSIS: morbid obesity, history of sleeve gastrectomy and hiatal hernia, HTN, migraines DISCHARGE DIAGNOSIS: same, s/p laparoscopic revision of sleeve gastrectomy and repair diaphragmatic hernia PAST SURGICAL HISTORY: sleeve gastrectomy, history of gastric banding and removal, cholecystectomy PROCEDURE: upper endoscopy, laparoscopic sleeve gastrectomy and repair of diaphragmatic hernia hernia DISCHARGE SUMMARY: History of Present Illness: The patient is a 46 year-old woman with a BMI of 49.9 kg/m2 and associated co-morbidities as described above. The patient had extensive work-up,lost 46.8 lbs preoperatively and was electively scheduled for laparoscopic, possible open revision of sleeve gastrectomy and gastropexy. Risks and complications of the surgery were discussed with the patient in advance, particularly the possibility of , pulmonary embolism, anastomotic leak, bleeding, bowel injury, GERD, cardiac, renal or pulmonary complications. The patient understood all the risks and was in agreement with the surgical plan. Hospital Course: The patient underwent an uneventful laparoscopic revision of her sleeve gastrectomy with gastropexy and repair of diaphragmatic hernia on the day of admission. Postoperatively, the patient was transferred to the surgical floor. The patient received IV Acetaminophen and IV dilaudid for pain control. Patient was started on bariatric phase 1 diet POD #0. On postoperative day one, the patient was feeling well without nausea, vomiting, fevers, or tachycardia. The patient had some mild incisional pain and the abdomen was soft. On the morning of postoperative day one, the patient was continued on 1 ounce of water or ice every half hour. During the day, the patient did fairly well, having some incisional pain, but able to ambulate adequately and to tolerate liquids well. Since the patient is doing well, we decided that the patient was ready to be discharged. The patient was given instructions to follow-up with me next week and to call my office for any fever over 101, persistent abdominal pain, nausea, vomiting, GERD, symptoms of DVT such as calf tenderness, or leg swelling, or pulmonary embolism such as chest pain or shortness of breath. The patient was also instructed to drink 40-60 ounces of liquids per day using the 1-ounce cups. The patient had been given prescriptions for Tylenol for pain, Zofran prn for nausea, and pantoprazole and carafate previously. The patient was encouraged to ambulate and use the incentive spirometer. The patient was allowed to shower, but no baths, and encouraged to stay active at home. All of these instructions were given to the patient personally. All questions were answered and the patient understood all instructions, the instructions were also given to the patient in print. Time Spent with Patient Time attestation: Total time spent providing and/or coordinating discharge services: Discharge coordination time: Less than 30 minutes Quality: Safe Use of Opioids Does Pt have an Active Cancer Diagnosis on the Problem List?: No Quality: Stroke Does the patient have a stroke diagnosis?: No Physical Exam Vital Signs: Vital Signs: Last Vital Signs Temp 97.8 F 03/24/22 08:16 Pulse 75 03/24/22 08:16 Resp 15 03/24/22 08:16 BP 128/77 03/24/22 08:16 Pulse Ox 96 03/24/22 08:16 O2 Del Method 03/24/22 08:16 BMI result Body Mass Index 41.1 DS: Data Data Completed and Pending Pending studies at discharge: Pending at discharge 03/24/22 15:09 Surgical [PTH] Routine Discharge Plan Discharge Anticipated Discharge Date/Time: 03/25/22 10:21 Patient Disposition: Home, Self-Care Discharge Diagnosis: s/p revision of sleeve gastrectomy Referrals: Sarina Martínez PA-C [Primary Care Provider] - 1 Week Discharge Medications: Continued naratriptan 1 mg tablet 1 mg PO Q4H PRN Rx Instructions: do not exceed 3 doses per 24 hrs pantoprazole 40 mg tablet,delayed release (DR/EC) 40 mg PO DAILY Qty: 30 2RF sucralfate 100 mg/mL suspension 10 ml PO BID Qty: 400 0RF ondansetron HCl 4 mg tablet 4 mg PO Q12H Qty: 20 0RF Held hydrochlorothiazide 25 mg tablet 25 mg PO DAILY Hold Instructions: Discuss restart with Dr Knapp amlodipine 5 mg tablet 5 mg PO DAILY Hold Instructions: Resume on 03/26/22. Don't take before you send to Dr. Knapp your blood pressure. This should be done daily lisinopril 20 mg tablet 20 mg PO DAILY Hold Instructions: Resume on 03/26/22. Don't take before you send to Dr. Knapp your blood pressure. This should be done daily Discontinued cholecalciferol (vitamin D3) 50 mcg (2,000 unit) tablet,chewable 50 mcg PO DAILY Qty: 30 6RF omeprazole 40 mg capsule,delayed release(DR/EC) 40 mg PO DAILY mecobalamin (vitamin B12) 5,000 mcg lozenge 5,000 mcg PO DAILY Rx Instructions: allow to dissolve in mouth OR may chew lightly before swallowing vitamin B6-vitamin E-magnesium Tablet PO vitamins B1 B6 B12 Tablet PO polyethylene glycol 3350 [Miralax] 17 gram powder in packet 17 g PO DAILY Qty: 14 0RF Rx Instructions: Mix each packet with 8oz of water and do 7 packets on 03/22/22 and another 7 packets on 03/23/22 Vitron-C 65 mg iron- 125 mg tablet,delayed release (DR/EC) 1 tab PO DAILY Qty: 30 2RF Rx Instructions: swallow whole; do not chew/break/dissolve/open Discharge Orders: Discharge Order (Routine); Ordered 03/25/22 Ordered By: Ervin Knapp Diet: other Activity on Discharge: No heavy lifting Stand Alone Forms: Patient Portal Discharge page Care Plan Goals: weight loss Health Concerns: morbid obesity Plan of Treatment: No tub baths, sex or returning to work until discussed at first post op appointment. No exercise, alcohol, tobacco or illegal drug use. Continue to use incentive spirometer hourly while awake. Walk in home for 5- 10 minutes every 2 hours during the first week. Continue phase 1 diet today and start phase 2 diet tomorrow morning. Follow all instructions in the bariatric handbook and call with any questions. 1. Please call your doctor or come back to the emergency room should any new symptoms arise. 2. You will receive a courtesy call from [facility] 24-48 hours after discharge. 3. Activity: abstain from alcohol, practice limited stair climbing, no bending, no driving, no exercise, no illicit substances, no lifting, no sex, no tub bath, no work. 4. Diet: continue as discussed with Dr. Knapp. 5. Dressing Change/Wound Care: Do not change or remove surgical dressings unless they are wet or soiled. 6. Call your doctor if: - Your temperature exceeds 101.5 F - You experience excessive pain or swelling - You have an unexpected reaction to medication - You have excessive bleeding - You experience continued vomiting/nausea - Your incision begins to separate - Your incision shows signs of infection such as increased redness, swelling, excessive pain, heat, or drainage (light blood or clear fluid is normal) 7. General instructions: No lifting greater than 5 lbs for the next 4 weeks[address] driving within 24 hours of taking narcotic pain medications. If you do not move your bowels in the next 2 days, please take milk of magnesia over the counter. Please follow the post op diet and do not advance your diet until you are seen in the office in about 2 weeks. Please walk around your home every hour or two to prevent blood clots from forming in your legs. You do not need to wake from sleeping to walk. Please sleep in a bed or couch to prevent kinking at the hips and knees. Please take your incentive spirometer (your lung wholesale manager) home with you and use it for the next few days to prevent pneumonias. You may shower, no hot tubs, baths or swimming pools. Please call the office with any questions or concerns such as increasing abdominal pain, fever, chills, shortness of breath, chest pain, leg pain or swelling, or redness or drainage from your incisions. Do not hesitate to contact the office with any questions at . The patient's medical history has been reviewed and they are considered low risk for post op DVT and therefore DVT prophylaxis is not considered necessary. Travel after surgery was reviewed. The patient has not disclosed any travel plans during the first 30 days after surgery and they have been advised that within the first 30 days after surgery any bus, plane, train or car travel over 2 hours in duration is contraindicated due to the possibility of developing blood clots from immobility. Any travel, needs to include periods of ambulation of 10 minutes in duration every 2 hours. The patient was instructed to discuss any plans for travel during this period with their bariatric surgeon. Assessment: stable, post of revision of sleeve gastrectomy and hiatal hernia repair
[2022-03-24] MEDS: Famotidine/PF 20 MG/2 ML VIAL IVPUSH ×2 (16:28→20:55)
[2022-03-24] MEDS: ondansetron HCL 4 MG/2 ML VIAL IVPUSH ×2 (16:49→19:47)
[2022-03-24 16:50] LABS: Hematocrit 39.8 % (37.0-47.0); Hemoglobin 12.8 g/dl (12.0-16.0)
[2022-03-24 17:21] LABS: Anion Gap 14 (12-20); Blood Urea Nitrogen 10 mg/dL (9-16); Calcium 8.4 mg/dL (8.4-10.2); Carbon Dioxide 21 mmol/L (22-29); Chloride 105 mmol/L (96-108); Creatinine Clr Calc Pharmacy 94.1; Estimated Glomerular Filt Rate > 60; Glucose Random 153 mg/dL (60-115); Potassium 4.4 mmol/L (3.3-5.1); Sodium 136 mmol/L (135-145)
[2022-03-24] MEDS: 0.9 % Sodium Chloride Flush 3 ML SYRINGE IVFLUSH (19:47)
[2022-03-25] MEDS: Metoclopramide HCl 10 MG/2 ML VIAL IVPUSH (01:26)
[2022-03-25] MEDS: HYDROmorphone HCl 0.5 MG/0.5 ML SYRINGE 0.25 MG IVPUSH (01:26)
[2022-03-25] MEDS: Lactated Ringers 1,000 ML 100 ML IVCONT (02:40)
[2022-03-25 03:21] VITALS: BP 107/62; PULSE 99; RESP 16; TEMP 36.2; O2SAT 95
[2022-03-25] MEDS: ondansetron HCL 4 MG/2 ML VIAL IVPUSH (04:04)
[2022-03-25 06:16] LABS: MANUAL DIFF FLAG NO
[2022-03-25] MEDS: lisinopriL 20 MG TABLET PO (06:16)
[2022-03-25 06:23] LABS: Basophils Percent Auto 0.1 % (0-2); Eosinophils Percent Auto 0.1 % (0-4); Hematocrit 35.9 % (37.0-47.0); Hemoglobin 11.7 g/dl (12.0-16.0); Imm Gran Abs Auto 0.05 X10*3/uL (0.00-0.03); Imm Gran Pct Auto 0.3 % (0.0-0.4); Lymphocytes Absolute Auto 1.4 X10*3/uL (1.2-4.9); Lymphocytes Percent Auto 9.9 % (20-40); Mean Corpuscular HGB Conc 32.6 g/dl (31.0-35.0); Mean Corpuscular Hemoglobin 28.6 pg (27.0-33.0); Mean Corpuscular Volume 87.8 fL (80.0-98.0); Mean Platelet Volume 10.2 fL (9.4-12.3); Monocytes Absolute Auto 0.9 X10*3/uL (0.1-1.2); Monocytes Percent Auto 6.2 % (2-11); Neutrophils Absolute Auto 11.9 x10*3/uL (2.0-8.3); Neutrophils Percent Auto 83.4 % (45-73); Platelet Count 263 X10*3/uL (160-400); Red Blood Count 4.09 X10*6/uL (4.20-5.50); Red Cell Distribution Width 13.9 % (11.0-16.0); White Blood Count 14.3 X10*3/uL (4.8-10.8)
[2022-03-25 06:33] LABS: Anion Gap 12 (12-20); Blood Urea Nitrogen 6 mg/dL (9-16); Calcium 8.4 mg/dL (8.4-10.2); Carbon Dioxide 24 mmol/L (22-29); Chloride 105 mmol/L (96-108); Creatinine Clr Calc Pharmacy 123.3; Estimated Glomerular Filt Rate > 60; Glucose Random 94 mg/dL (60-115); Potassium 4.2 mmol/L (3.3-5.1); Sodium 137 mmol/L (135-145)
--- NOTE | 2022-03-25 06:49 | HO.POSTANES ---
Post Anesthesia Evaluation Post Anesthesia Evaluation Vital Signs: Vital Signs Temp Pulse Resp BP Pulse Ox O2 Del Method O2 Flow Rate 03/25/22 03:21 97.2 F 99 16 107/62 95 Room Air 03/24/22 23:23 97.1 F 99 16 128/79 96 Nasal Cannula 2 03/24/22 19:09 96.7 F L 92 18 138/88 95 Room Air Anesthesia: General Endotracheal-GETA Mental Status: Awake Pain Control: Satisfactory Nausea/Vomiting: None Hydration: Adequate Anesthesia-Related Issues: No Anes. Related Issues
[2022-03-25] MEDS: Famotidine/PF 20 MG/2 ML VIAL IVPUSH (07:19)
[2022-03-25] MEDS: amLODIPine Besylate 5 MG TABLET PO (07:19)
[2022-03-25 07:40] VITALS: BP 126/84; PULSE 90; RESP 20; TEMP 36.4; O2SAT 95
[2022-03-25 08:00] VITALS: RESP 20
--- NOTE | 2022-03-25 10:06 | MHC.CM.PN ---
NURSE SERVICE ORDER DISPATCHER NOTE ELECTRONIC MEDICAL RECORD REVIEWED ALONG WITH CASE DISCUSSE WITH STAFF NURSE , MET WITH PATIENT SHE IS POST OP DAUIY I BARIATRIC SURGERY AND WILL BE DISCHAGRE HOME TODAY. . 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 SHE IS ACTIVE , INDEPENEDNT IN ALLADSLS AND MOBILITY WITH OUT ANY DEVICES. SHE HAS A CPAP MACHINE AT HOME , SHE HAS NO VNA SERVICES DISCHARGE PLAN HOME WITH FAMILY NO SERVICES HCP COPY REQUESTED TO NBE MAILED TO [facility] REC[facility] COVID VACINATED PFZERX2 AND BOOSTER X1 SELF RESUMTPION OF MENTAL HEALTH COUNSLEING FOR ANXIETY AND DRPRESION PCP LORRIE GERMAN INSTRUCTED TO CALL FOR POST HOSPITLA DISCHJARGEAPPOINTMENT BARIATRIC SURGICLA FOLLOW UP NOTED ON THE DISCHARGE INSTRUCTIONS
== END 2022-03-25 09:33 | disposition home or self-care (01) | DRG 403 ==
LOC: HO.SSSA 08:07 → HO.S3 14:57
PROVIDERS: Physician Assistant; Physician Assistant Surgical; Admitting Provider Surgery; PCP Physician Assistant Medical; Visit Provider Surgery
PROC: 0DB64Z3 Excision of Stomach, Percutaneous Endoscopic Approach, Vertical (ICD-10-PCS; principal; 2022-03-24 10:10)
DX: E66.01 Morbid (severe) obesity due to excess calories (principal); K74.00 Hepatic fibrosis, unspecified; K44.0 Diaphragmatic hernia with obstruction, without gangrene; F41.1 Generalized anxiety disorder; G47.33 Obstructive sleep apnea (adult) (pediatric); K66.0 Peritoneal adhesions (postprocedural) (postinfection); G43.909 Migraine, unspecified, not intractable, without status migrainosus; Z20.822 Contact with and (suspected) exposure to COVID-19; Z68.41 Body mass index [BMI] 40.0-44.9, adult; Z98.84 Bariatric surgery status; Z87.891 Personal history of nicotine dependence; Z88.0 Allergy status to penicillin; Z88.7 Allergy status to serum and vaccine; Z88.8 Allergy status to other drugs, medicaments and biological substances; Z79.899 Other long term (current) drug therapy
CPT/HCPCS: 36415; 80048; 80053; 80061; 83036; 83525; 84443; 85014; 85018; 85025; 85610; 85730; 86140; 86850; 86900; 86901; 87635; 88307; 88342; A4649; C9088; J0131; J1100; J1170; J2250; J2370; J2405; J2550; J2765; J3010; J3370

== ENCOUNTER 2022-09-28 08:06 | Outpatient (REF) | payer BC, SELFPAY ==
[2022-09-28 08:27] LABS: MANUAL DIFF FLAG NO
[2022-09-28 08:56] LABS: Basophils Absolute Auto 0.1 X10*3/uL (0.0-0.2); Basophils Percent Auto 0.6 % (0-2); Eosinophils Absolute Auto 0.1 X10*3/uL (0.0-0.4); Eosinophils Percent Auto 1.4 % (0-4); Hemoglobin 13.7 g/dl (12.0-16.0); Imm Gran Abs Auto 0.03 X10*3/uL (0.00-0.03); Imm Gran Pct Auto 0.4 % (0.0-0.4); Lymphocytes Absolute Auto 1.9 X10*3/uL (1.2-4.9); Lymphocytes Percent Auto 23.7 % (20-40); Mean Corpuscular HGB Conc 32.6 g/dl (31.0-35.0); Mean Corpuscular Hemoglobin 30.4 pg (27.0-33.0); Mean Corpuscular Volume 93.1 fL (80.0-98.0); Mean Platelet Volume 10.3 fL (9.4-12.3); Monocytes Absolute Auto 0.5 X10*3/uL (0.1-1.2); Monocytes Percent Auto 6.4 % (2-11); Neutrophils Absolute Auto 5.4 x10*3/uL (2.0-8.3); Neutrophils Percent Auto 67.5 % (45-73); Platelet Count 338 X10*3/uL (160-400); Red Blood Count 4.51 X10*6/uL (4.20-5.50); Red Cell Distribution Width 13.2 % (11.0-16.0)
[2022-09-28 09:04] LABS: Estimated Average Glucose 94 mg/dL; Hemoglobin A1c % 4.9 %
[2022-09-28 09:58] LABS: Alanine Aminotransferase 9 U/L (0-31); Alkaline Phosphatase 75 U/L (39-117); Anion Gap 12 (12-20); Aspartate Amino Transferase 11 U/L (5-31); Bilirubin Total 0.6 mg/dL (0.0-1.0); Blood Urea Nitrogen 10 mg/dL (9-16); C Reactive Protein < 0.10 mg/dL (< or = 0.50); Calcium 9.5 mg/dL (8.4-10.2); Carbon Dioxide 28 mmol/L (22-29); Chloride 106 mmol/L (96-108); Cholesterol 235 mg/dL; Estimated Glomerular Filt Rate > 60; Ferritin 17 ng/mL (10-250); Glucose Random 88 mg/dL (60-115); HDL Cholesterol 58 mg/dL; Insulin 5 uU/mL (2-29); Iron 86 mcg/dL (30-160); LDL Cholesterol Calculated 164 mg/dl; Percent Iron Saturation 29 % (15-50); Potassium 4.7 mmol/L (3.3-5.1); Sodium 141 mmol/L (135-145); TSH reflex Free T4 1.34 uIU/mL (0.32-4.0); Total Iron Binding Capacity 295 mcg/dL (228-428); Triglycerides 68 mg/dL; Unsaturated Iron Binding 209 ug/dL; Vitamin D 25-OH Total 32.8 ng/mL (>30)
[2022-09-28 10:04] LABS: Folate 11.9 ng/mL (> or = 4.0); Vitamin B12 505 pg/mL (200-900)
[2022-09-29 11:52] LABS: Calcium (PTHI) 9.4 mg/dL (8.6-10.2); PTHI 49 pg/mL (16-77)
[2022-10-03 14:53] LABS: Vitamin B1 7 nmol/L (8-30)
[2022-10-03 19:14] LABS: Zinc 83 mcg/dL (60-130)
[2022-10-04 11:09] LABS: Vitamin A 37 mcg/dL (38-98)
== END 2022-09-28 08:07 | disposition home or self-care (01) ==
LOC: HO.LAB 08:06
PROVIDERS: PCP Physician Assistant Medical; Visit Provider Physician Assistant
DX: E61.1 Iron deficiency (principal); E66.9 Obesity, unspecified; I10 Essential (primary) hypertension; Z98.84 Bariatric surgery status
CPT/HCPCS: 36415; 80053; 80061; 82306; 82607; 82728; 82746; 83036; 83525; 83540; 83970; 84425; 84443; 84590; 84630; 85025; 86140

== ENCOUNTER → 2022-11-26 09:42 | Outpatient (BNVA) | payer BC, SELFPAY | PROVIDERS: PCP Physician Assistant Medical; Visit Provider Physician Assistant Surgical | DX: K44.9 Diaphragmatic hernia without obstruction or gangrene (principal); K21.9 Gastro-esophageal reflux disease without esophagitis ==

== ENCOUNTER → 2023-01-21 09:00 | Outpatient (BNVA) | payer BC, SELFPAY | PROVIDERS: PCP Physician Assistant Medical; Visit Provider Physician Assistant Surgical | DX: Z13.89 Encounter for screening for other disorder (principal) ==

== ENCOUNTER → 2023-03-24 09:30 | Outpatient (BNVA) | payer BC, SELFPAY | PROVIDERS: PCP Physician Assistant Medical; Visit Provider Physician Assistant Surgical | DX: E66.9 Obesity, unspecified (principal); Z98.84 Bariatric surgery status ==

== ENCOUNTER 2023-06-23 07:15 | Outpatient (REF) | payer BC, SELFPAY ==
[2023-06-23 07:33] LABS: MANUAL DIFF FLAG NO
[2023-06-23 08:25] LABS: Estimated Average Glucose 88 mg/dL; Hemoglobin A1c % 4.7 % (<6.0)
[2023-06-23 08:33] LABS: Basophils Percent Auto 0.5 % (0-2); Eosinophils Absolute Auto 0.1 X10*3/uL (0.0-0.4); Eosinophils Percent Auto 1.5 % (0-4); Hematocrit 38.9 % (37.0-47.0); Hemoglobin 12.7 g/dl (12.0-16.0); Imm Gran Abs Auto 0.02 X10*3/uL (0.00-0.03); Imm Gran Pct Auto 0.3 % (0.0-0.4); Lymphocytes Percent Auto 29.9 % (20-40); Mean Corpuscular HGB Conc 32.6 g/dl (31.0-35.0); Mean Corpuscular Volume 91.7 fL (80.0-98.0); Mean Platelet Volume 10.6 fL (9.4-12.3); Monocytes Absolute Auto 0.5 X10*3/uL (0.1-1.2); Monocytes Percent Auto 7.1 % (2-11); Neutrophils Percent Auto 60.7 % (45-73); Platelet Count 265 X10*3/uL (160-400); Red Blood Count 4.24 X10*6/uL (4.20-5.50); Red Cell Distribution Width 13.2 % (11.0-16.0); White Blood Count 6.6 X10*3/uL (4.8-10.8)
[2023-06-23 08:52] LABS: Alanine Aminotransferase 13 U/L (0-31); Albumin Level 3.8 g/dL (3.5-5.0); Alkaline Phosphatase 62 U/L (39-117); Anion Gap 10 (12-20); Aspartate Amino Transferase 12 U/L (5-31); Bilirubin Total 0.7 mg/dL (0.0-1.0); Blood Urea Nitrogen 11 mg/dL (9-16); Calcium 9.3 mg/dL (8.4-10.2); Carbon Dioxide 28 mmol/L (22-29); Chloride 108 mmol/L (96-108); Cholesterol 222 mg/dL (<200); Estimated Glomerular Filt Rate > 60; Glucose Random 86 mg/dL (60-115); HDL Cholesterol 69 mg/dL (>40); Iron 119 mcg/dL (30-160); LDL Cholesterol Calculated 143 mg/dL (<100); Percent Iron Saturation 40 % (15-50); Potassium 4.5 mmol/L (3.3-5.1); Sodium 141 mmol/L (135-145); Total Iron Binding Capacity 299 mcg/dL (228-428); Total Protein 6.7 g/dL (6.5-8.0); Triglycerides 53 mg/dL (<150); Unsaturated Iron Binding 180 ug/dL
[2023-06-23 08:59] LABS: Ferritin 14 ng/mL (10-250); Insulin 4 uU/mL (2-29); TSH reflex Free T4 2.02 uIU/mL (0.32-4.0); Vitamin D 25-OH Total 31.6 ng/mL (>30)
[2023-06-23 09:15] LABS: Folate 11.3 ng/mL (> or = 4.0); Vitamin B12 349 pg/mL (200-900)
[2023-06-24 15:54] LABS: Calcium (PTHI) 8.9 mg/dL (8.6-10.2); PTHI 55 pg/mL (16-77)
[2023-06-28 01:44] LABS: Zinc 85 mcg/dL (60-130)
[2023-06-28 14:04] LABS: Vitamin B1 9 nmol/L (8-30)
[2023-06-29 16:04] LABS: Vitamin A 36 mcg/dL (38-98)
== END 2023-06-23 07:16 | disposition home or self-care (01) ==
LOC: HO.LAB 07:15
PROVIDERS: PCP Physician Assistant Medical; Visit Provider Physician Assistant Surgical
DX: K91.2 Postsurgical malabsorption, not elsewhere classified (principal); Z98.84 Bariatric surgery status; Z20.2 Contact with and (suspected) exposure to infections with a predominantly sexual mode of transmission
CPT/HCPCS: 36415; 80053; 80061; 82306; 82607; 82728; 82746; 83036; 83525; 83540; 83970; 84425; 84443; 84590; 84630; 85025; 86140

== ENCOUNTER 2023-06-24 09:22 | Outpatient (AMB) | payer BC, SELFPAY ==
--- NOTE | 2023-06-24 09:24 | MHC.OFFVISWM ---
Intake VS Expanded 06/24/23 09:36 Height 5 ft 5.5 in Weight 213 lb BMI 34.9 BP 141/89 H Blood Pressure Location Rt brachial Blood Pressure Position Sitting Pulse 74 Pulse Source Pulse Oximeter Temp 98.4 F Temperature Source Temporal Artery Scan Pulse Oximetry 99 Oxygen Delivery Method Room Air Body Fat 71.0 Body Fat Percentage 33.3 Free Fat Mass 142.0 Muscle Mass 135.0 Visceral Mass 17.0 Water Mass 102.6 BMR 1,924 Intake Visit Reasons: (OV) PO LSG 03/24/2022 Allergies levofloxacin [From Levaquin] Allergy (Severe, Verified 04/07/22 09:00) Hives Penicillins Allergy (Severe, Verified 04/07/22 09:00) Hives Tetanus Vaccines and Toxoid Allergy (Severe, Verified 04/07/22 09:00) Swelling at site, rosacea clotrimazole Allergy (Mild, Verified 06/24/23 09:34) Rash miconazole [From Neosporin AF] Allergy (Mild, Verified 06/24/23 09:33) Rash Medication List - Last Reconciled 06/24/23 by FANG Barahona-Carmelina calcium citrate-vitamin D3 315 mg-5 mcg (200 unit) (Calcium Citrate + D) 1 tab PO DAILY docusate sodium (Colace) 100 mg PO BID famotidine (Pepcid) 20 mg PO DAILY inulin (Fiber Gummies) 2 grams PO BID lisinopril 10 mg PO DAILY msiwemseovqk-tnt-hacx-FA-vit K 45 mg iron- 800 mcg-120 mcg (Bariatric Multivitamins) caps PO naratriptan 1 mg PO Q4H PRN pantoprazole 40 mg PO DAILY vitamin A palmitate 10,000 units PO DAILY HPI HPI Comments History of Present Illness Details Post op 15 months form LSG after GBP. [employer] weight of 304.8 lbs, TBWL of 91.8 lbs - has regained 14 lbs over last 4 months. Her mother in March, no refrigerator for 6 weeks, increase in back injury (from assembling furniture). Now able to restart bike and pool again. Will have college sized dorm fridge by the end of this week. Wakes at 6:30 am bed by 10 pm. Needs 90 grams protein per day Meal plan thoughts: 7am - 20 gram yogurt with blueberries 12pm- 26 gram protien shake 6:30 pm - 4 oz chicken and 2 oz vegetable PFSH Medical History (Updated 03/24/23 @ 09:54 by FANG Tompkins) Iron deficiency AZEB (generalized anxiety disorder) Renal stones Hx of migraines GERD (gastroesophageal reflux disease) HTN (hypertension) with goal to be determined Pre-op evaluation Surgical History History of partial hysterectomy Hx of hand surgery Hx of endoscopy Hx of oral surgery Hx of wisdom tooth extraction History of sleeve gastrectomy Hx of cholecystectomy Hx of laparoscopic gastric banding Family History Mother Breast cancer FH: mastectomy Hypertension Diabetes Father No problems noted. Brother No problems noted. Brother Heart disease Kidney stones Social History Are you a primary day care provider to a significant other at home: Yes Do you presently have visiting nurse or other home services: No Alcohol intake: current Alcohol intake frequency: does not drink Patient Tobacco Use Status: Former Tobacco user Quit Date: 1999 Tobacco use type: Cigarette service: No Current occupational status: employed Physical Exam Vital Signs: Last Vital Signs Temp 98.4 F 06/24/23 09:36 Pulse 74 06/24/23 09:36 BP 141/89 H 06/24/23 09:36 Pulse Ox 99 06/24/23 09:36 Oxygen Delivery Method Room Air 06/24/23 09:36 BMI result Body Mass Index 34.9 GI Other: raised inflammatory streaky area above pubis around hair follicles. Non-erythematous, no draingae or discharge. Assessment & Plan Assessment & Plan (1) Obesity: Code(s): E66.9 - Obesity, unspecified Plan: Plan to get back on track with weight loss. 9am - 26 gram shake 12 pm- 20 grams yogurt with berries 3pm - will finish protein bars that she has at home, then 2 hb eggs 6pm- 4 oz protien,2-4 oz of vegetable Exercising - sees PCP for back injury treatment. Pool - aerobics a few days per week Working with human resources director - doing ST - 3d/ week. Cardio - bike for 30 minutes every other day and increase as long as there is no pain. Goal is to decrease pantoprazole with proper eating habits of slowing down to 20 - 30 minutes per meal of solid food and 45 mintues for shake. Then will try to stop pepcid. BP is usually beter - will monitor. Will attempt to stop fiber suppplements as needed with increased fiber in diet. Use hydrocortisone 1% cramm at night on inflammatory area above pubis. Let me know if does not improve, stop if worsens. Next appt with me in 3 months, pt encouraged to text me questions prn. (2) S/P laparoscopic sleeve gastrectomy: Code(s): Z98.84 - Bariatric surgery status Coding Level of Care Code Est Pt Level 4 (99614) Diagnoses Obesity E66.9 S/P laparoscopic sleeve gastrectomy Z98.84
[2023-06-24 09:36] VITALS: BP 141/89; PULSE 74; TEMP 36.9; O2SAT 99; BMI 34.9
== END 2023-06-24 10:26 | disposition home or self-care (01) ==
PROVIDERS: PCP Physician Assistant Medical; Visit Provider Physician Assistant
DX: E66.9 Obesity, unspecified (principal); Z68.34 Body mass index [BMI] 34.0-34.9, adult; Z90.3 Acquired absence of stomach [part of]; Z98.84 Bariatric surgery status
CPT/HCPCS: 99214

== ENCOUNTER → 2023-06-24 09:22 | Outpatient (BNVA) | payer BC, SELFPAY | PROVIDERS: PCP Physician Assistant Medical; Visit Provider Physician Assistant ==

== ENCOUNTER 2023-10-06 09:19 | Outpatient (AMB) | payer BC, SELFPAY ==
--- NOTE | 2023-10-06 09:20 | A.OFFVIS_ITS ---
Intake VS Expanded 10/06/23 09:32 BP 132/82 Blood Pressure Location Rt brachial Blood Pressure Position Sitting Pulse 71 Pulse Source Pulse Oximeter Temp 98.2 F Temperature Source Temporal Artery Scan Pulse Oximetry 99 Oxygen Delivery Method Room Air Height 5 ft 5.5 in Weight 220 lb BMI 36.0 Body Fat % 38.5 Body Fat Mass 84.6 Fat Free Mass 135.2 Visceral Fat Rating 10.0 Body Water % 43.8 Body Water Mass 96.4 Muscle Mass/Score 128.4 Basal Metabolic Rate/Score 1,852 Intake Visit Reasons: (OV) PO LSG 03/24/2022 Allergies levofloxacin [From Levaquin] Allergy (Severe, Verified 10/06/23 09:27) Hives Penicillins Allergy (Severe, Verified 10/06/23 09:27) Hives Tetanus Vaccines and Toxoid Allergy (Severe, Verified 10/06/23 09:27) Swelling at site, rosacea clotrimazole Allergy (Mild, Verified 10/06/23 09:27) Rash miconazole [From Neosporin AF] Allergy (Mild, Verified 10/06/23 09:27) Rash Medication List - Last Reconciled 10/06/23 by Gloria Sher PA-C calcium citrate-vitamin D3 315 mg-5 mcg (200 unit) (Calcium Citrate + D) 1 tab PO DAILY gabapentin 600 mg PO DAILY inulin (Fiber Gummies) 2 grams PO BID lisinopril 10 mg PO DAILY pjoctkjovamf-plb-jrdb-FA-vit K 45 mg iron- 800 mcg-120 mcg (Bariatric Multivitamins) caps PO naratriptan 1 mg PO Q4H PRN pantoprazole 40 mg PO DAILY vitamin A palmitate 10,000 units PO DAILY HPI HPI Comments History of Present Illness Details 48 woman now 18 months s/p LSG after pre vious GBP [employer] weight of 304.8 lbs. Lowest weight was 197.8, has gained 7 lbs since her last appt in June. TBWL is 84.8 lbs or 27.8%. No exercise due to worsening of low back pain now on increased doses of gabapentin and will have MRI tomorrow. Has intermittent tingling and numbness bilateral LE worse on R. Just finished prednisone. Will meet with color strainer this week for exercise recommendations. Labs done Jun 2023, mildly decreased Vit A, mildly elevated cholesterol but improving. Post op complications: none ROLO:resolved DM never HTN: still onmeds Hyperlipidemia: never GERD: 2 - after dinner, lays down about 2.5 hours after dinner. feels full at di nner Satisfaction with present condition - Not satisfied, wants to stop pantoprazole 7:30 - 11am - Core 42 g shake 1:30 pm- 2 hb eggs 4pm - yogurt or bar 7 pm- 4 oz protien,2-4 oz of vegetable Rash above pubis has resolved. [facility] Medical History (Updated 10/06/23 @ 09:58 by Gloria Sher PA-C) Hiatal hernia with gastroesophageal reflux Obstructive sleep apnea Morbid obesity Iron deficiency AZEB (generalized anxiety disorder) Renal stones Hx of migraines GERD (gastroesophageal reflux disease) HTN (hypertension) with goal to be determined Pre-op evaluation Surgical History History of partial hysterectomy Hx of hand surgery Hx of endoscopy Hx of oral surgery Hx of wisdom tooth extraction History of sleeve gastrectomy Hx of cholecystectomy Hx of laparoscopic gastric banding Family History Mother Breast cancer FH: mastectomy Hypertension Diabetes Father No problems noted. Brother No problems noted. Brother Heart disease Kidney stones Social History Are you a primary team primary care physician to a significant other at home: Yes Do you presently have visiting nurse or other home services: No Alcohol intake: current Alcohol intake frequency: does not drink Patient Tobacco Use Status: Former Tobacco user Quit Date: 1999 Tobacco use type: Cigarette service: No Current occupational status: employed Physical Exam GI Inspection: Yes incision (all completely healed) and Yes Abdominal panniculus present Palpation (GI): Soft to palpation, nontender, no hernias and no masses Assessment & Plan Assessment & Plan (1) Obesity: Code(s): E66.9 - Obesity, unspecified Plan: 18 months revision LSG, with continued weight gain, unable to excercise for months due to acute/chronin low back pain. Has MRI tomorrow, will meet with color strainer for recommendations for movement. Meal plan - minor changes Stop oat milk and use nut milk instead 8:30- 26 gram shake 12:30 - 2 hb eggs 4pm - bar or yogurt 7pm- reduce to 3 oz and 3 oz to see if evening reflux resolves. Once again, ingen is encouraged ot text me with questions/problems and progress. Post op labs ordered. Next appt with me in 6 months. Patient is obese and is not considered stable at this time. I spent 30 minutes in total with patient reviewing/updating records, examining the patient and counseling the patient on weight management as detailed above. (2) S/P laparoscopic sleeve gastrectomy: Code(s): Z98.84 - Bariatric surgery status Plan: see above (3) HTN (hypertension) with goal to be determined: Code(s): I10 - Essential (primary) hypertension Plan: continue meds per PCP Orders: Orders Insulin Today E61.1 - Iron deficiency, E66.9 - Obesity, unspecified, I10 - Essential (primary) hypertension, Z98.84 - Bariatric surgery status Lipid Panel Today E61.1 - Iron deficiency, E66.9 - Obesity, unspecified, I10 - Essential (primary) hypertension, Z98.84 - Bariatric surgery status Comprehensive Met. Panel Today E61.1 - Iron deficiency, E66.9 - Obesity, unspecified, I10 - Essential (primary) hypertension, Z98.84 - Bariatric surgery status Zinc Today E61.1 - Iron deficiency, E66.9 - Obesity, unspecified, I10 - Essential (primary) hypertension, Z98.84 - Bariatric surgery status TSH reflex Free T4 Today E61.1 - Iron deficiency, E66.9 - Obesity, unspecified, I10 - Essential (primary) hypertension, Z98.84 - Bariatric surgery status Vitamin D 25-OH Total Today E61.1 - Iron deficiency, E66.9 - Obesity, unspecified, I10 - Essential (primary) hypertension, Z98.84 - Bariatric surgery status Hemoglobin A1c Today E61.1 - Iron deficiency, E66.9 - Obesity, unspecified, I10 - Essential (primary) hypertension, Z98.84 - Bariatric surgery status Complete Blood Count Auto Diff Today E61.1 - Iron deficiency, E66.9 - Obesity, unspecified, I10 - Essential (primary) hypertension, Z98.84 - Bariatric surgery status IRON PROFILE Today E61.1 - Iron deficiency, E66.9 - Obesity, unspecified, I10 - Essential (primary) hypertension, Z98.84 - Bariatric surgery status Vitamin B12 and Folate Today E61.1 - Iron deficiency, E66.9 - Obesity, unspecified, I10 - Essential (primary) hypertension, Z98.84 - Bariatric surgery status C Reactive Protein Today E61.1 - Iron deficiency, E66.9 - Obesity, unspecified, I10 - Essential (primary) hypertension, Z98.84 - Bariatric surgery status Vitamin B1 Today E61.1 - Iron deficiency, E66.9 - Obesity, unspecified, I10 - Essential (primary) hypertension, Z98.84 - Bariatric surgery status Vitamin A Today E61.1 - Iron deficiency, E66.9 - Obesity, unspecified, I10 - Essential (primary) hypertension, Z98.84 - Bariatric surgery status Ferritin Today E61.1 - Iron deficiency, E66.9 - Obesity, unspecified, I10 - Essential (primary) hypertension, Z98.84 - Bariatric surgery status Coding Level of Care Code Est Pt Level 4 (02915) Diagnoses Obesity E66.9 S/P laparoscopic sleeve gastrectomy Z98.84 HTN (hypertension) with goal to be determined I10
[2023-10-06 09:32] VITALS: BP 132/82; PULSE 71; TEMP 36.8; O2SAT 99; BMI 36.0
== END 2023-10-06 10:07 | disposition home or self-care (01) ==
PROVIDERS: PCP Physician Assistant Medical; Visit Provider Physician Assistant
DX: E66.9 Obesity, unspecified (principal); Z68.36 Body mass index [BMI] 36.0-36.9, adult; Z90.3 Acquired absence of stomach [part of]; Z98.84 Bariatric surgery status; I10 Essential (primary) hypertension
CPT/HCPCS: 99213

== ENCOUNTER → 2023-10-06 09:19 | Outpatient (BNVA) | payer BC, SELFPAY | PROVIDERS: Visit Provider Physician Assistant ==

== ENCOUNTER 2023-12-01 09:47 | Outpatient (AMB) | payer BC, SELFPAY ==
--- NOTE | 2023-12-01 09:56 | HO.SPINEOV ---
Intake Intake Visit Reasons: lumbar radiculopathy Ship Rigger Required: No Allergies levofloxacin [From Levaquin] Allergy (Severe, Verified 10/06/23 09:27) Hives Penicillins Allergy (Severe, Verified 10/06/23 09:27) Hives Tetanus Vaccines and Toxoid Allergy (Severe, Verified 10/06/23 09:27) Swelling at site, rosacea clotrimazole Allergy (Mild, Verified 10/06/23 09:27) Rash miconazole [From Neosporin AF] Allergy (Mild, Verified 10/06/23 09:27) Rash Assessment & Plan Assessment & Plan (1) Lumbar radiculopathy: Code(s): M54.16 - Radiculopathy, lumbar region Plan Dear colleague, Thank you for referring Isela to our office today. She is a pleasant 48 y/o female who comes in today with a CC of low back pain with radiation into her bilateral lower extremities. When describing the radiation she states that it starts in her low back shoots the side of her thighs, goes down the side of her knee and terminates near her calves. She also reports intermittent numbness of the heels of her feet. She reports that the inciting incident was in February of 2023 when she was carrying heavy boxes up a set of stairs. She states that since her injury she has been unable to lift heavy weights/go to the gym and has on 30 lb. She is concerned that she is beginning to restrict her activities of daily living and would like to find a resolution for her pain. She reports that she has a previous history of a gastric sleeve, and is unable to take NSAIDs. She has been utilizing gabapentin and cannabis instead to help alleviate her pain. She reports that she has been evaluated by her primary care physician, urgent care, and the emergency department, but has yet to engage in physical therapy, attempt healthcare interpreter, go to see someone for acupuncture, or obtain cortisone injections. She reports that lifting/bending over makes her pain worse, and that lying down her stomach helps to alleviate her pain. She denies significant issues with ambulation. PMH: History of gastric sleeve, cholecystectomy, hiatal hernia repair, hysterectomy. Hypertension, GERD, migraines, osteoarthritis. Social hx: Patient does not smoke. Takes cannabis daily before bed. Medications: Gabapentin, lisinopril, naratriptan, pantoprazole. Allergies: Levofloxacin, penicillin, tetanus vaccine, Neosporin. Physical exam: The patient has 5/5 strength in her upper and lower extremities. She reports some intermittent sensational changes on the lateral aspect of her thighs and calves. She also reports intermittent numbness in her bilateral feet. Her reflexes are 2+ intact. She is able to ambulate well and rises from a seated position without difficulty. (-) Gonzalez's, (-) clonus, (-) straight leg raise bilaterally. Imaging review: MRI of the lumbar spine completed at [facility] in 2022 shows mild central canal/foraminal stenosis at L4-5. At L5-S1 there is a posterior disc bulge, which does not appear to be causing significant foraminal or central canal stenosis. There is also some endplate inflammation of L5. Impression: Isela is a pleasant 48-year-old female who comes in today with a chief complaint of low back pain with radiation into her bilateral lower extremities. Upon review of her imaging she does have a posterior disc bulge at L5-S1, however it does not appear to be causing any significant central canal or foraminal stenosis. Her radiation of symptoms is in a pattern that could be considered consistent with an S1 nerve root impingement, although a I would expect her radicular symptoms to be more posterior. She has not yet exhausted conservative management. I would like to send her to physical therapy, and have her follow-up with pain management for discussion of epidural steroid injections at this level for potential relief of symptoms. If she continues to have low back pain with radicular symptoms that is refractory to these interventions I encouraged her to make a follow-up appointment with our office. Thank you for allowing us to care for your patient. The total time spent with this visit with this patient was 45 minutes reviewing history, physical exam, MRI imaging review, and implementation of treatment plan or further diagnostic testing Papi Quigley MD,PhD [facility] Coding Level of Care Code New Pt Level 4 (92415) Diagnoses Lumbar radiculopathy M54.16
== END 2023-12-01 10:49 | disposition home or self-care (01) ==
PROVIDERS: PCP Physician Assistant Medical; Referring Provider Physician Assistant Medical; Visit Provider Physician Assistant
DX: M54.16 Radiculopathy, lumbar region (principal)
CPT/HCPCS: 99204

== ENCOUNTER → 2023-12-01 09:47 | Outpatient (BNVA) | payer BC, SELFPAY | PROVIDERS: PCP Physician Assistant Medical; Visit Provider Physician Assistant ==

== ENCOUNTER 2023-12-29 10:26 | Outpatient (AMB) | payer BC, SELFPAY ==
--- NOTE | 2023-12-29 10:29 | A.OFFVIS_ITS ---
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 Accompanied by: Self / Same As Patient Allergies levofloxacin [From Levaquin] Allergy (Severe, Verified 12/29/23 10:37) Hives Penicillins Allergy (Severe, Verified 12/29/23 10:37) Hives Tetanus Vaccines and Toxoid Allergy (Severe, Verified 12/29/23 10:37) Swelling at site, rosacea clotrimazole Allergy (Mild, Verified 12/29/23 10:37) Rash miconazole [From Neosporin AF] Allergy (Mild, Verified 12/29/23 10:37) Rash NSAIDS (Non-Steroidal Anti-Inflamma Adverse Reaction (Unknown, Verified 12/29/23 10:37) Unknown HPI HPI Comments 2 History of Present Illness0 Details Isela is a very pleasant 48-year-old female who presents the office today for evaluation management of her chronic lower back pain. Patient reports that she has been suffering with this pain since February of 2023, she sustained injury after lifting heavy boxes of furniture and carrying them up stairs. Pain is constant, rated today as 6/10. Midline lumbar area with radiation down both legs to the feet. She reports the pain down her legs is constant though varies between the left leg in the right leg. Today the pain was mostly down the left leg, other days she reports it will be on the right or some days both legs. Patient has tried resting, Tylenol, nonsteroidal anti-inflammatory medication, gabapentin and professionally guided home exercise program without improvement of her symptoms. She reports minimal relief with lidocaine patches. She uses THC for sleeping. Pain is worse with going up and down the stairs, lying down and sitting. Prior to the injury she was very active and going to the gym she had lost over 100 lb. Since the injury she has not been able to go to the gym due to the pain and has gained 35 lb, she is very unhappy with this. Patient had recent visit with [facility] and was recommended to complete physical therapy and visit our office for potential steroid injection. Recent x-ray and MRI results from [facility] note were reviewed as per below. Patient denies red flag symptoms including new loss of bowel, bladder or saddle anesthesia. In terms of muscle damage condition is described as aching, pins and needles. Pain is negatively impacting patient's sleep, ability to perform activities of daily living, ability to function normally, enjoyment of life, work and recreational activities. [facility] Medical History (Updated 12/01/23 @ 10:30 by FANG Avila) Hiatal hernia with gastroesophageal reflux Obstructive sleep apnea Morbid obesity Iron deficiency AZEB (generalized anxiety disorder) Renal stones Hx of migraines GERD (gastroesophageal reflux disease) HTN (hypertension) with goal to be determined Pre-op evaluation Surgical History History of partial hysterectomy Hx of hand surgery Hx of endoscopy Hx of oral surgery Hx of wisdom tooth extraction History of sleeve gastrectomy Hx of cholecystectomy Hx of laparoscopic gastric banding Family History Mother Breast cancer FH: mastectomy Hypertension Diabetes Father No problems noted. Brother No problems noted. Brother Heart disease Kidney stones Social History Are you a primary home care manager to a significant other at home: Yes Do you presently have visiting nurse or other home services: No Alcohol intake: current Alcohol intake frequency: does not drink Patient Tobacco Use Status: Former Tobacco user Quit Date: 1999 Tobacco use type: Cigarette service: No Current occupational status: employed Review of Systems Const All systems reviewed & are unremarkable except as noted in HPI and below Physical Exam Vital Signs: Last Vital Signs Pulse 92 12/29/23 10:36 BP 126/86 12/29/23 10:36 Pulse Ox 98 12/29/23 10:36 Oxygen Delivery Method Room Air 12/29/23 10:36 BMI result Body Mass Index 38.5 General: awake, alert, oriented. Answers questions appropriately. Fully engaged in examination. Skin: warm, dry, intact HEENT: Normocephalic. Hearing intact. Cardiac: External chest normal in appearance. Respiratory: No cough, audible wheezing or stridor. Abdomen: without gross distension. MS: No obvious swelling or deformities. Able to stand on bilateral tiptoes and bilateral heels.? Able to transition from sit to stand unassisted. Ambulates with bilaterally normal heel strike and toe off SLR positive R BLE strength 5/5 Neg Clonus ROM flexion to 100 degrees notable for pain increase at the top of flexion that improves around 30 degrees, extension to 15 degrees Tenderness over lumbar vertebrae and paraspinal muscles Neurological: Oriented to person, place, time and situation. Thought process intact. No gait abnormalities appreciated. Psychiatric: Appropriate mood and affect. Good judgment and insight. Results Reviewed Results Reviewed: Per [facility] note 11/2023: Imaging review: MRI of the lumbar spine completed at [facility] in 2022 shows mild central canal/foraminal stenosis at L4-5. At L5-S1 there is a posterior disc bulge, which does not appear to be causing significant foraminal or central canal stenosis. There is also some endplate inflammation of L5. Assessment & Plan Assessment & Plan (1) Lumbar radiculopathy: Code(s): M54.16 - Radiculopathy, lumbar region Plan Isela is a very pleasant 48 year old female who presented to the office today for evaluation management of her chronic lower back pain. History, physical exam provocative testing consistent with lumbar radiculopathy. Patient has exhausted greater than 6 months conservative therapy including home exercise program, [id number] medications, nonsteroidal anti-inflammatory medications, prescription medications, ice, heat, rest and lidocaine patches. Continue with PT and home exercise program. Recommended patient try aquatherapy. Lidocaine 5% topical apply to most painful area on for 12 hours off for 12 hours Discussed at length diagnosis and options for treatment including diagnostic interventional testing, epidural steroid injections, peripheral nerve stimulation with Sprint, RFA and more permanent neuromodulation. Will schedule for fluoroscopy guided L5-S1 transforaminal epidural steroid injection with local anesthetic. All questions and concerns have been answered and patient agrees with the plan. Follow up after injections and sooner if needed. Medications: New 2 lidocaine 5% leave on most painful area for up to 12 hrs 1 patch topical DAILY 30 ea 3RF Coding Level of Care Code New Pt Level 4 (34486) Diagnoses Lumbar radiculopathy M54.16
[2023-12-29 10:36] VITALS: BP 126/86; PULSE 92; O2SAT 98; BMI 38.5
== END 2023-12-29 11:05 | disposition home or self-care (01) ==
PROVIDERS: PCP Physician Assistant Medical; Visit Provider Registered Nurse Emergency
DX: M54.16 Radiculopathy, lumbar region (principal)
CPT/HCPCS: 99204

== ENCOUNTER → 2023-12-29 10:26 | Outpatient (BNVA) | payer BC, SELFPAY | PROVIDERS: PCP Physician Assistant Medical; Visit Provider Registered Nurse Emergency ==

== ENCOUNTER 2024-02-21 06:11 | Outpatient (REF) | payer BC, SELFPAY ==
--- NOTE | ~2024-02-21 | FL_ITS ---
EXAMINATION: XR FLUOROSCOPY WITH IMAGES CLINICAL INFORMATION: Radiculopathy lumbar region. COMPARISON: None available. TECHNIQUE: Fluoroscopy Supervised By: Martha Fluoroscopy Time: 0.5 minutes. Cumulative Dose: 0.31 mGy. DAP: 0.144 Gy-cm2. Images: 3. FINDINGS: Intraoperative fluoroscopy and spot films were performed during a procedure in the OR. 3 images show spinal needles around the lower lumbar spine with surrounding contrast media on each side. Please see King's report for complete details. FL/FL guidance in treatment room IMPRESSION: Intraoperative fluoroscopy and spot films were obtained. Please see Khteakin's report for complete details.
== END 2024-02-21 06:12 | disposition home or self-care (01) ==
LOC: CF 06:11
PROVIDERS: Visit Provider Anesthesiology
DX: M54.16 Radiculopathy, lumbar region (principal)
CPT/HCPCS: 64483

== ENCOUNTER 2024-02-21 10:30 | Outpatient (AMB) | payer BC, SELFPAY ==
--- NOTE | 2024-02-21 10:30 | A.OFFVIS_ITS ---
Vital Signs 02/21/24 10:35 02/21/24 11:11 Height 5 ft 5 in Weight 235 lb BMI 39.1 BP 124/76 134/80 Blood Pressure Location Lt brachial Lt brachial Position Sitting Sitting Respiration 18 20 Pulse 73 74 Pulse Source Pulse Oximeter Pulse Oximeter Pulse Oximetry (%) 99 97 Oxygen Delivery Method Room Air Room Air Comment Pre-Op Intake Visit Reasons: BILATERAL L5, S1 TFESI Allergies levofloxacin [From Levaquin] Allergy (Severe, Verified 12/29/23 10:37) Hives Penicillins Allergy (Severe, Verified 12/29/23 10:37) Hives Tetanus Vaccines and Toxoid Allergy (Severe, Verified 12/29/23 10:37) Swelling at site, rosacea clotrimazole Allergy (Mild, Verified 12/29/23 10:37) Rash miconazole [From Neosporin AF] Allergy (Mild, Verified 12/29/23 10:37) Rash NSAIDS (Non-Steroidal Anti-Inflamma Adverse Reaction (Unknown, Verified 12/29/23 10:37) Unknown [facility] Medical History (Updated 12/01/23 @ 10:30 by FANG Avila) Hiatal hernia with gastroesophageal reflux Obstructive sleep apnea Morbid obesity Iron deficiency AZEB (generalized anxiety disorder) Renal stones Hx of migraines GERD (gastroesophageal reflux disease) HTN (hypertension) with goal to be determined Pre-op evaluation Surgical History History of partial hysterectomy Hx of hand surgery Hx of endoscopy Hx of oral surgery Hx of wisdom tooth extraction History of sleeve gastrectomy Hx of cholecystectomy Hx of laparoscopic gastric banding Family History Mother Breast cancer FH: mastectomy Hypertension Diabetes Father No problems noted. Brother No problems noted. Brother Heart disease Kidney stones Social History Are you a primary wound care physician to a significant other at home: Yes Do you presently have visiting nurse or other home services: No Alcohol intake: current Alcohol intake frequency: does not drink Patient Tobacco Use Status: Former Tobacco user Quit Date: 1999 Tobacco use type: Cigarette service: No Current occupational status: employed Physical Exam Vital Signs: Last Vital Signs Pulse 74 02/21/24 11:11 Resp 20 02/21/24 11:11 BP 134/80 02/21/24 11:11 Pulse Ox 97 02/21/24 11:11 Oxygen Delivery Method Room Air 02/21/24 11:11 BMI result Body Mass Index 39.1 Assessment & Plan Assessment & Plan (1) Lumbar radiculopathy: Code(s): M54.16 - Radiculopathy, lumbar region Category: Medical Plan: Transforaminal bilateral L5-S1 epidural steroid injection Informed consent was thoroughly explained to the patient before the procedure.? The patient came to the operating room.? She was positioned prone on operating table with a pillow under his abdomen.? Time-out was performed delineating correct site and side of the procedure, nature of the injection, name and date of of the patient. The lower back of the patient was prepped with ChloraPrep and draped with steri le utility towels.? C-arm was brought over the operating field and sq picture of L5 vertebra were demonstrated on the screen.? The right side was chosen as the side of the injection.? Tilting machine ipsilateral to the right at the level of L5 1st the most prominent picture of the right pedicle was obtained on the screen.? 3 mm below the level of the lowest point of the pedicle projection to the skin small amount of lidocaine 1% 3-4 cc was injected to anesthetize the skin.? After that 5 in 22 gauge Quincke point needle was inserted through the skin wheal and was advanced to were the L5-S1 foramina on anterior posterior , lateral and oblique views intermittently.? When tip of the needle entered foramina projection on AP view injection of the contrast was performed demonstrating epidural and perineural spread of the contrast.? On the lateral view contrast was spread in the epidural fashion. After that injection of the treatment medicine 4 cc of lidocaine 1% mixed with Kenalog 40 mg was injected into the foramina.? Injection of the contrast and injection of the treatment medicine was observed live on the screen.? No intrathecal and no intravascular spread of the contrast was noted. After that the procedure was performed in the same very fashion on L5-S1 level on the left. The patient tolerated procedure well. The needles were withdrawn sterile Band- Aids were applied. The patient went to recovery room to recover. Giovanni Weiss is a very pleasant 48 year old female who presented to the office today for evaluation management of her chronic lower back pain. History, physical exam provocative testing consistent with lumbar radiculopathy. Patient has exhausted greater than 6 months conservative therapy including home exercise program, [id number] medications, nonsteroidal anti-inflammatory medications, prescription medications, ice, heat, rest and lidocaine patches. Continue with PT and home exercise program. Recommended patient try aquatherapy. Lidocaine 5% topical apply to most painful area on for 12 hours off for 12 hours Discussed at length diagnosis and options for treatment including diagnostic in terventional testing, epidural steroid injections, peripheral nerve stimulation with Sprint, RFA and more permanent neuromodulation. Will schedule for fluoroscopy guided L5-S1 transforaminal epidural steroid injection with local anesthetic. All questions and concerns have been answered and patient agrees with the plan. Follow up after injections and sooner if needed. Orders: Orders FL guidance in treatment room Today M54.16 - Radiculopathy, lumbar region Coding Level of Care Code Procedure Only Diagnoses Lumbar radiculopathy M54.16
[2024-02-21 10:35] VITALS: BP 124/76; PULSE 73; RESP 18; O2SAT 99; BMI 39.1
[2024-02-21 11:11] VITALS: BP 134/80; PULSE 74; RESP 20; O2SAT 97
== END 2024-02-21 11:29 | disposition home or self-care (01) ==
LOC: HO.PMCPRC 10:30
PROVIDERS: PCP Physician Assistant Medical; Visit Provider Anesthesiology
DX: M54.16 Radiculopathy, lumbar region (principal)
CPT/HCPCS: 64483

== ENCOUNTER 2024-03-14 10:00 | Outpatient (RCR) | payer BC, SELFPAY | END 2024-04-02 13:26 | disposition home or self-care (01) | LOC: HO.PT 10:00 | PROVIDERS: PCP Physician Assistant Medical; Visit Provider Physician Assistant | DX: M54.16 Radiculopathy, lumbar region (principal) | CPT/HCPCS: 97012; 97110; 97112; 97140; 97162 ==

== ENCOUNTER 2024-03-21 10:55 | Outpatient (AMB) | payer BC, SELFPAY ==
[2024-03-21 11:05] VITALS: BP 127/76; PULSE 62; RESP 18; O2SAT 99; BMI 38.9
--- NOTE | 2024-03-21 11:05 | MHC.OFFVIS ---
Vital Signs 03/21/24 11:05 Height 5 ft 5 in Weight 233 lb 8 oz BMI 38.9 BP 127/76 Blood Pressure Location Lt brachial Position Sitting Respiration 18 Pulse 62 Pulse Source Pulse Oximeter Pulse Oximetry (%) 99 Oxygen Delivery Method Room Air Intake Visit Reasons: BILATERAL L5, S1 TFESI Allergies levofloxacin [From Levaquin] Allergy (Severe, Verified 03/21/24 10:57) Hives Penicillins Allergy (Severe, Verified 03/21/24 10:57) Hives Tetanus Vaccines and Toxoid Allergy (Severe, Verified 03/21/24 10:57) Swelling at site, rosacea clotrimazole Allergy (Mild, Verified 03/21/24 10:57) Rash miconazole [From Neosporin AF] Allergy (Mild, Verified 03/21/24 10:57) Rash NSAIDS (Non-Steroidal Anti-Inflamma Adverse Reaction (Unknown, Verified 03/21/24 10:57) Unknown HPI Comments Details: Patient presents the office today for follow-up 1 month status post bilateral L5-S1 transforaminal epidural steroid injection He reports 50% improvement of her pain, functional mobility since the procedure. Continues with midline lower back pain, worse with bending, sitting for long periods of time and climbing stairs. Reports she no longer has pain, burning, numbness or tingling down either lower extremity past the level of the knee. Frustrated because she has still not able to exercise or do any of the activities she could do before the injury. Physical therapy has not resolved her symptoms, she did extensive professionally guided home exercise program and continues with PT now. Pain today is rated as a 3/10. Prior: Isela is a very pleasant 48-year-old female who presents the office today for evaluation management of her chronic lower back pain. Patient reports that she has been suffering with this pain since February of 2023, she sustained injury after lifting heavy boxes of furniture and carrying them up stairs. Pain is constant, rated today as 6/10. Midline lumbar area with radiation down both legs to the feet. She reports the pain down her legs is constant though varies between the left leg in the right leg. Today the pain was mostly down the left leg, other days she reports it will be on the right or some days both legs. Patient has tried resting, Tylenol, nonsteroidal anti-inflammatory medication, gabapentin and professionally guided home exercise program without improvement of her symptoms. She reports minimal relief with lidocaine patches. She uses THC for sleeping. Pain is worse with going up and down the stairs, lying down and sitting. Prior to the injury she was very active and going to the gym she had lost over 100 lb. Since the injury she has not been able to go to the gym due to the pain and has gained 35 lb, she is very unhappy with this. Patient had recent visit with neuro spine Center and was recommended to complete physical therapy and visit our office for potential steroid injection. Recent x-ray and MRI results from Neurospine note were reviewed as per below. Patient denies red flag symptoms including new loss of bowel, bladder or saddle anesthesia. In terms of muscle damage condition is described as aching, pins and needles. Pain is negatively impacting patient's sleep, ability to perform activities of daily living, ability to function normally, enjoyment of life, work and recreational activities. [facility] Medical History (Updated 12/01/23 @ 10:30 by FANG Avila) Hiatal hernia with gastroesophageal reflux Obstructive sleep apnea Morbid obesity Iron deficiency AZEB (generalized anxiety disorder) Renal stones Hx of migraines GERD (gastroesophageal reflux disease) HTN (hypertension) with goal to be determined Pre-op evaluation Surgical History History of partial hysterectomy Hx of hand surgery Hx of endoscopy Hx of oral surgery Hx of wisdom tooth extraction History of sleeve gastrectomy Hx of cholecystectomy Hx of laparoscopic gastric banding Family History Mother Breast cancer FH: mastectomy Hypertension Diabetes Father No problems noted. Brother No problems noted. 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 care facility manager to a significant other at home: Yes Do you presently have visiting nurse or other home services: No Alcohol intake: current Alcohol intake frequency: does not drink Patient Tobacco Use Status: Former Tobacco user Tobacco use type: Cigarette service: No Current occupational status: employed Review of Systems Const All systems reviewed & are unremarkable except as noted in HPI and below Physical Exam Vital Signs: Last Vital Signs Pulse 62 03/21/24 11:05 Resp 18 03/21/24 11:05 BP 127/76 03/21/24 11:05 Pulse Ox 99 03/21/24 11:05 Oxygen Delivery Method Room Air 03/21/24 11:05 BMI result Body Mass Index 38.9 General: awake, alert, oriented. Answers questions appropriately. Fully engaged in examination. Skin: warm, dry, intact HEENT: Normocephalic. Hearing intact. Cardiac: External chest normal in appearance. Respiratory: No cough, audible wheezing or stridor. Abdomen: without gross distension. MS: No obvious swelling or deformities. Able to transition from sit to stand unassisted. Ambulates with bilaterally normal heel strike and toe off Minimally tender over bilateral PSIS. Tenderness over midline lumbar vertebrae Gaenslen negative, thigh thrust negative Neurological: Oriented to person, place, time and situation. Thought process intact Psychiatric: Appropriate mood and affect. Good judgment and insight. Results Reviewed Results Reviewed: Per NeuroSpine note 11/2023: Imaging review: MRI of the lumbar spine completed at [facility] in 2022 shows mild central canal/foraminal stenosis at L4-5. At L5-S1 there is a posterior disc bulge, which does not appear to be causing significant foraminal or central canal stenosis. There is also some endplate inflammation of L5. Assessment & Plan Assessment & Plan (1) Lumbar radiculopathy: Code(s): M54.16 - Radiculopathy, lumbar region Category: Medical Plan Isela presented to the office today for follow-up, 1 month status post bilateral L5-S1 transforaminal epidural steroid injection Reports 50% improvement of pain, function mobility since the procedure. Patient has exhausted greater than 6 months conservative therapy including PT, home exercise program, hsaq-ngf-dzotswq medications, nonsteroidal anti-inflammatory medications, prescription medications, ice, heat, rest and lidocaine patches. Continue with PT Continue with Lidocaine 5% topical application Patient previously seen by neuro spine, per their note she was to exhaust conservative therapy and if no improvement returned to their office to further discuss. She was advised to call and schedule an appointment for follow-up with a neuro spine office. All questions and concerns have been answered and patient agrees with the plan. Follow up after neuro spine visit, sooner if needed Coding Level of Care Code Est Pt Level 3 (27934) Diagnoses Lumbar radiculopathy M54.16
== END 2024-03-21 12:01 | disposition home or self-care (01) ==
PROVIDERS: PCP Physician Assistant Medical; Visit Provider Registered Nurse Emergency
DX: M54.16 Radiculopathy, lumbar region (principal)
CPT/HCPCS: 99213

== ENCOUNTER → 2024-03-21 10:55 | Outpatient (BNVA) | payer BC, SELFPAY | PROVIDERS: PCP Physician Assistant Medical; Visit Provider Registered Nurse Emergency ==

== ENCOUNTER 2024-03-28 12:30 | Outpatient (AMB) | payer BC, SELFPAY ==
--- NOTE | 2024-03-28 12:43 | MHC.OFFVISWM ---
VS Expanded 03/28/24 12:54 Height 5 ft 5 in Weight 233 lb 8 oz BMI 38.9 Intake Visit Reasons: (telephone) PO LSG 03/24/22 Allergies levofloxacin [From Levaquin] Allergy (Severe, Verified 03/21/24 10:57) Hives Penicillins Allergy (Severe, Verified 03/21/24 10:57) Hives Tetanus Vaccines and Toxoid Allergy (Severe, Verified 03/21/24 10:57) Swelling at site, rosacea clotrimazole Allergy (Mild, Verified 03/21/24 10:57) Rash miconazole [From Neosporin AF] Allergy (Mild, Verified 03/21/24 10:57) Rash NSAIDS (Non-Steroidal Anti-Inflamma Adverse Reaction (Unknown, Verified 03/21/24 10:57) Unknown Medication List - Last Reconciled 03/28/24 by FANG Tompkins acetaminophen ER (Tylenol 8 Hour) 650 mg PO Q8H calcium citrate-vitamin D3 315 mg-5 mcg (200 unit) (Calcium Citrate + D) 1 tab PO DAILY inulin (Fiber Gummies) 2 grams PO BID lidocaine 5% 1 patch topical DAILY lisinopril 10 mg PO DAILY raeptlgabzvk-zsh-zeda-FA-vit K 45 mg iron- 800 mcg-120 mcg (Bariatric Multivitamins) caps PO naratriptan 1 mg PO Q4H PRN pantoprazole 40 mg PO DAILY vitamin A palmitate 10,000 units PO DAILY HPI Comments Details: This?is a?48?yo female who is s/p revision LSG 03/24/2022. Presents for 2 year post op visit. Weight at last visit on 10/06/2023 was 220 pounds with a BMI of 36, weight today is 233.5 pounds, representing a 13.5 pound weight gain with a BMI today of [].? Regarding reflux, taking PPI once in AM and a few Tums during the day which is much better than previous. Has also weaned off gabapentin which she thinks was worsening reflux. Does take edible THC in evening and needs Tums to help this. Pt reports not always getting adequate protein- lack of appetite due to pain, nausea sometimes due to meds. Tries to avoid carbs still. having difficulty with meat proteins due to reflux. Present meal plan includes: 8:30- 26 gram shake 12:30 - 2 hb eggs 4pm - bar or yogurt 7pm- reduce to 3 oz and 3 oz Exercise routine includes: has low back pain- has a surgical consult next week, conservative treatment has not been effective PFSH Medical History (Updated 12/01/23 @ 10:30 by FANG Avila) Hiatal hernia with gastroesophageal reflux Obstructive sleep apnea Morbid obesity Iron deficiency AZEB (generalized anxiety disorder) Renal stones Hx of migraines GERD (gastroesophageal reflux disease) HTN (hypertension) with goal to be determined Pre-op evaluation Surgical History History of partial hysterectomy Hx of hand surgery Hx of endoscopy Hx of oral surgery Hx of wisdom tooth extraction History of sleeve gastrectomy Hx of cholecystectomy Hx of laparoscopic gastric banding Family History Mother Breast cancer FH: mastectomy Hypertension Diabetes Father No problems noted. Brother No problems noted. Brother Heart disease Kidney stones Social History Are you a primary patient care technician to a significant other at home: Yes Do you presently have visiting nurse or other home services: No Alcohol intake: current Alcohol intake frequency: does not drink Patient Tobacco Use Status: Former Tobacco user Tobacco use type: Cigarette service: No Current occupational status: employed Telehealth Telehealth Telehealth Platform: Telephone Location of provider rendering services: practice address Location of patient: address on file Patient Identification confirmed using: Name, : Yes Telehealth method: voice only Patient verbally consented to treatment: Yes Patient verbally consented to billing insurance company: Yes Patient informed of any privacy concerns related to visit: Yes Minutes spent on Phone/Video with Pt.: 15 Assessment & Plan Assessment & Plan (1) Obesity: Code(s): E66.9 - Obesity, unspecified Category: Medical (2) S/P laparoscopic sleeve gastrectomy: Code(s): Z98.84 - Bariatric surgery status Category: Surgical Plan Protein goal 90-95g/day- Breakfast- 2 eggs midmorning- Corepower shake Lunch- high protein 20g yogurt afternoon- Celebrate Rebuild 1 scoop dinner- 6 forks protein, 6 forks salad/veg Labs ordered. RTC 6 months at which time pt hopes to have some direction on relief from back pain. Patient is obese and is not considered stable at this time. I spent a total of 30 minutes reviewing/updating records, examining the patient and counseling the patient on weight management as detailed above.
[2024-03-28 12:54] VITALS: BMI 38.9
== END 2024-03-28 15:55 | disposition home or self-care (01) ==
LOC: HO.HBS 15:52
PROVIDERS: PCP Physician Assistant Medical; Visit Provider Physician Assistant Surgical
DX: E66.9 Obesity, unspecified (principal); Z68.38 Body mass index [BMI] 38.0-38.9, adult; Z90.3 Acquired absence of stomach [part of]; Z98.84 Bariatric surgery status
CPT/HCPCS: 99442

== ENCOUNTER → 2024-03-28 12:30 | Outpatient (BNVA) | payer BC, SELFPAY | PROVIDERS: PCP Physician Assistant Medical; Visit Provider Physician Assistant Surgical | DX: E66.9 Obesity, unspecified (principal); Z98.84 Bariatric surgery status ==

== ENCOUNTER 2024-04-02 09:49 | Outpatient (AMB) | payer BC, SELFPAY ==
--- NOTE | 2024-04-02 09:54 | A.SPINEOV_ITS ---
Intake Visit Reasons: f/up lumbar radiculopathy Intake Note: Ms. Esqueda is here today to F/u after Conservative therapy. Bsa/Aml Compliance Officer Required: No Allergies levofloxacin [From Levaquin] Allergy (Severe, Verified 03/21/24 10:57) Hives Penicillins Allergy (Severe, Verified 03/21/24 10:57) Hives Tetanus Vaccines and Toxoid Allergy (Severe, Verified 03/21/24 10:57) Swelling at site, rosacea clotrimazole Allergy (Mild, Verified 03/21/24 10:57) Rash miconazole [From Neosporin AF] Allergy (Mild, Verified 03/21/24 10:57) Rash NSAIDS (Non-Steroidal Anti-Inflamma Adverse Reaction (Unknown, Verified 03/21/24 10:57) Unknown Assessment & Plan Assessment & Plan (1) Lumbar radiculopathy: Code(s): M54.16 - Radiculopathy, lumbar region Category: Medical Plan: Isela is a pleasant 48-year-old female who comes in today as a follow-up after exhausting conservative measures per our previous discussion. As noted in her last evaluation by pain management: Patient has exhausted greater than 6 months conservative therapy including PT, home exercise program, ssbp-axc-ayghpen medications, nonsteroidal anti- inflammatory medications, prescription medications, ice, heat, rest and lidocaine patches. On examination today she continues to have 5/5 strength in her bilateral lower extremities. (-) bilateral straight leg raise. (-) Karishma's bilaterally. Reflexes 2+ intact at patella and Achilles. No sensational changes. Today, Isela continues to report lumbar radiculopathy. She states she has low back pain with shooting pains into her bilateral groin, down her posterior thighs, and occasionally into her bilateral calves. She states that lying flat on her stomach still helps to alleviate her symptoms, and that sitting for prolonged periods of time, bending, lifting, and lying on her back all exacerbate her pain. Given this, she does state that the numbness/tingling in her feet and shooting pains into her heels seems to have resolved. She does report very modest improvement with cortisone injections but feels as though this is waning. Given that Isela has exhausted greater than 6 months of thorough conservative measures and continues to have a notable lumbar radiculopathy significantly impacting her life and ADLs I would like to have a repeat MRI completed here at [facility] to evaluate for any improvement and/or worsening of her lumbar spine pathology. See previous office visit note for information/impression regarding this. Papi Quigley MD,PhD [facility] Orders: Orders MR lumbar spine wo con Today M54.16 - Radiculopathy, lumbar region Coding Level of Care Code Est Pt Level 3 (63842) Diagnoses Lumbar radiculopathy M54.16
== END 2024-04-02 10:11 | disposition home or self-care (01) ==
PROVIDERS: PCP Physician Assistant Medical; Visit Provider Physician Assistant
DX: M54.16 Radiculopathy, lumbar region (principal)
CPT/HCPCS: 99213

== ENCOUNTER → 2024-04-02 09:49 | Outpatient (BNVA) | payer BC, SELFPAY | PROVIDERS: PCP Physician Assistant Medical; Visit Provider Physician Assistant ==

== ENCOUNTER 2024-05-03 19:09 | Outpatient (REF) | payer BC, SELFPAY ==
--- NOTE | ~2024-05-03 | MR_ITS ---
EXAMINATION: MR LUMBAR SPINE WITHOUT CONTRAST CLINICAL INFORMATION: Lumbar radiculopathy COMPARISON: None. TECHNIQUE: MRI of the lumbar spine was obtained using routine sequences without the administration of intravenous contrast. FINDINGS: This examination assumes the presence of 5 lumbar type vertebral bodies. For the purposes of this examination, the L5-S1 intervertebral disc space is visualized on axial series 5 image 28. The normal lumbar lordosis is preserved. Trace anterolisthesis of L4-L5. Lumbar vertebral body heights are maintained. Interosseous hemangioma in the L5 vertebral body. Prominent marrow edema along the inferior right aspect of L5. The conus medullaris and cauda equina nerve roots are unremarkable; the conus terminates at the level of L1. L1-L2: No significant spinal canal or neural foraminal stenosis. L2-L3: Facet arthropathy with ligamentum flavum redundancy. The spinal canal and neural foramen are patent. L3-L4: Trace disc bulge. Facet arthropathy with ligamentum flavum redundancy. The spinal canal and neural foramen are patent. L4-L5: Disc bulge with left foraminal/far lateral annular fissure. Facet arthropathy with ligamentum flavum redundancy. Mild spinal canal stenosis. Mild narrowing of the neural foramen. L5-S1: Disc bulge with central/right central disc protrusion with small annular fissure. There is asymmetric narrowing of the right lateral recess with approximation of the descending right S1 nerve root. The central canal is otherwise patent. Facet arthropathy. Mild narrowing of the left neural foramen. T2 hyperintense foci in the bilateral kidneys are indeterminate, but likely represent cysts. MR/MR lumbar spine wo con IMPRESSION: At L5-S1 there is a disc bulge with a right central disc protrusion. Associated asymmetric narrowing of the right lateral recess with close approximation of the descending right S1 nerve root. There is prominent marrow edema along the right aspect of the L5 inferior endplate. No high-grade spinal canal or neural foraminal stenosis in the lumbar spine.
== END 2024-05-03 19:10 | disposition home or self-care (01) ==
LOC: HO.MRI 19:09
PROVIDERS: PCP Physician Assistant Medical; Visit Provider Physician Assistant
DX: M54.16 Radiculopathy, lumbar region (principal)
CPT/HCPCS: 72148

== ENCOUNTER 2024-06-15 14:40 | Outpatient (AMB) | payer BC, SELFPAY ==
--- NOTE | 2024-06-15 15:17 | HO.SPINEOV ---
Intake Visit Reasons: discuss MRI & sx Intake Note: Isela is here today to discuss the results of her MRI and possible surgery. Radial Drill Operator Required: No Allergies levofloxacin [From Levaquin] Allergy (Severe, Verified 03/21/24 10:57) Hives Penicillins Allergy (Severe, Verified 03/21/24 10:57) Hives Tetanus Vaccines and Toxoid Allergy (Severe, Verified 03/21/24 10:57) Swelling at site, rosacea clotrimazole Allergy (Mild, Verified 03/21/24 10:57) Rash miconazole [From Neosporin AF] Allergy (Mild, Verified 03/21/24 10:57) Rash NSAIDS (Non-Steroidal Anti-Inflamma Adverse Reaction (Unknown, Verified 03/21/24 10:57) Unknown Assessment & Plan Assessment & Plan (1) Lumbar radiculopathy: Code(s): M54.16 - Radiculopathy, lumbar region Category: Medical Plan Dear colleague, On 06/15/2024, I saw for final follow-up Isela Esqueda. She is complaining of a constant excruciating pain down both legs and numbness after work-related injury. The pain and numbness can be alternating. She has tried all forms of conservative treatments without effect. Your an MRI of the lumbar spine which shows mild L4-5 spinal stenosis and a mild5 S1 central disc bulge. Her history is not compatible with spinal stenosis and therefore the radiological spinal stenosis is not symptomatic. Unfortunately, I have no surgical solution for her symptoms. In fact, do not have other solutions to offer either as she already tried all forms of conservative management. She was very disappointed to hear that I have no treatment. I spent 30 in this consult to review imaging and discussing the findings. Santos Quigley MD, PhD Spine Fellowship Trained Neurosurgeon Director, [facility] Coding Level of Care Code Est Pt Level 3 (02341) Diagnoses Lumbar radiculopathy M54.16
== END 2024-06-15 15:56 | disposition home or self-care (01) ==
PROVIDERS: PCP Physician Assistant Medical; Visit Provider Neurological Surgery
DX: M54.16 Radiculopathy, lumbar region (principal)
CPT/HCPCS: 99213

== ENCOUNTER → 2024-06-15 14:40 | Outpatient (BNVA) | payer BC, SELFPAY | PROVIDERS: PCP Physician Assistant Medical; Visit Provider Neurological Surgery ==